=== PATIENT | female | born 1975 | race Caucasian/White ===

== ENCOUNTER 2017-01-29 15:44 | Emergency (ER) | payer OTHER ==
[~2017-01-29] VITALS: Ht 152.4 cm; Wt 67.4 kg
[~2017-01-29 15:44] MED LIST: LISI-461 PO
[2017-01-29 15:48] VITALS: TEMP 36.7; Ht 152.4 cm; Wt 67.4 kg
[2017-01-29] MEDS ORDERED: MoRPHine SULFATE 4 MG/ML 1 ML CARP\\VIAL IV STA (16:01)
[2017-01-29] MEDS ORDERED: SODIUM CHLORIDE 0.9% 1000ML 1,000 ML IV STA (16:01)
[2017-01-29] MEDS ORDERED: ONDANSETRON INJ 2 MG/ML 2 ML VIAL IV STA (16:01)
--- NOTE | 2017-01-29 16:07 | EMERGENCY ROOM VISIT NOTE ---
History Report prepared by Chintan: Yoni Orozco Under the Supervision of: Dr. Christel Cherry M.D. First contact with patient: 15:51 Chief Complaint: ABDOMINAL PAIN Stated Complaint: RIGHT SIDE PAIN History of Present Illness The patient is a 41 year old female who presents to the Emergency Room with complaints of persistent right-sided abdominal pain that started yesterday. She says that she saw her family doctor earlier today, and was told if her pain got any worse to come here for further evaluation. The patient states that she started having loose stools 2 days ago. She adds that she started having episodes of vomiting today. She denies any shortness of breath, urinary symptoms , or hematochezia. The patient notes a history of a partial hysterectomy, but no pertinent chronic medical conditions. Source of History: patient Onset: Yesterday Position: abdomen (right sided) Timing: other (persistent) Associated Symptoms: + vomiting, No SOB, No hematochezia, No urinary symptoms Note: Associated symptoms: Loose stools. Review of Systems See HPI for pertinent positives & negatives. A total of 10 systems reviewed and were otherwise negative. Past Medical & Surgical Medical Problems: (1) HTN (hypertension) Surgical Problems: (1) History of knee surgery (2) History of partial hysterectomy (3) History of tubal ligation No chronic diseases present Family History Cancer Diabetes mellitus Heart disease Hypertension Lung disease Social History Smoking Status: Current Every Day Smoker Alcohol Use: occasionally Marital Status: single Occupation Status: employed Current/Historical Medications Scheduled Acetaminophen (Tylenol), 1,000 MG PO PRN UD Lisinopril (Zestril), 40 MG PO DAILY Trazodone Hcl (Trazodone), 50 MG PO HS Allergies Coded Allergies: Penicillins (Unverified Allergy, Mild, 05/18/09) Physical Exam Vital Signs Date Time Temp Pulse Resp B/P (MAP) Pulse Ox O2 Delivery O2 Flow Rate FiO2 01/29/17 17:57 71 20 144/90 99 Room Air 01/29/17 17:09 75 01/29/17 17:00 71 20 157/95 98 Room Air 01/29/17 15:48 36.7 72 20 147/101 100 Room Air Physical Exam Vital signs reviewed. General: Well-appearing 41 year old female, in no significant distress. HEENT: No scleral icterus, PERRLA, neck supple. Atraumatic. Cardiovascular: Regular rate and rhythm, no extra sounds. Pulmonary: Clear to auscultation bilaterally, normal work of breathing. Abdomen: Tenderness to palpation to right lower quadrant with rebound and guarding. Soft, nondistended, positive bowel sounds. Musculoskeletal: Atraumatic, no peripheral edema. Neurologic: Patient awake alert and oriented x 3 Skin: Warm, dry, no rash Medical Decision & Procedures ER Provider Diagnostic Interpretation: CT results as stated below per my review and radiologist interpretation: CT OF THE ABDOMEN AND PELVIS WITH CONTRAST CLINICAL HISTORY: Right lower quadrant abdominal pain. Evaluate for acute appendicitis. COMPARISON STUDY: Abdominal ultrasound September 13, 2005. TECHNIQUE: Following IV administration of 93 mL of Optiray-320, axial images of the abdomen and pelvis were obtained from the lung bases to the proximal femurs. Images were reviewed in the axial, sagittal, and coronal planes. IV contrast was administered without complication. A dose lowering technique was utilized adhering to the principles of ALARA. CT DOSE: 331.56 mGy.cm FINDINGS: The liver, spleen, adrenal glands, kidneys and pancreas are normal. There is no peripancreatic or pericholecystic infiltration. There is no evidence for a bowel obstruction. The appendix is normal. A 2.7 cm left ovarian lesion measures just above water attenuation. There is trace fluid within the pelvis. The right ovary is not enlarged. There are no suspicious osseous lesions. There is no ascites or lymphadenopathy. IMPRESSION: 1. No acute process within the abdomen or pelvis. Normal appendix. 2. 2.7 cm left ovarian lesion which likely reflects a cyst or dominant follicle. A follow-up pelvic ultrasound in 6 weeks to ensure resolution is recommended. Electronically signed by: Nabor Wallace M.D. 01/29/2017 6:09 PM Dictated Date/Time: 01/29/2017 5:49 PM Laboratory Results 01/29/17 16:35 Red Blood Count 4.01, Mean Corpuscular Volume 96.0, Mean Corpuscular Hemoglobin 33.4, Mean Corpuscular Hemoglobin Concent 34.8, Mean Platelet Volume 9.0, Neutrophils (%) (Auto) 55.1, Lymphocytes (%) (Auto) 32.5, Monocytes (%) (Auto) 10.7, Eosinophils (%) (Auto) 1.5, Basophils (%) (Auto) 0.2, Neutrophils # (Auto ) 3.24, Lymphocytes # (Auto) 1.91, Monocytes # (Auto) 0.63, Eosinophils # (Auto ) 0.09, Basophils # (Auto) 0.01 01/29/17 16:35 Test 01/29/17 16:35 01/29/17 16:50 White Blood Count 5.88 K/uL (4.8-10.8) Red Blood Count 4.01 M/uL (4.2-5.4) Hemoglobin 13.4 g/dL (12.0-16.0) Hematocrit 38.5 % (37-47) Mean Corpuscular Volume 96.0 fL (80-100) Mean Corpuscular Hemoglobin 33.4 pg (25-34) Mean Corpuscular Hemoglobin Concent 34.8 g/dl (32-36) Platelet Count 253 K/uL (130-400) Mean Platelet Volume 9.0 fL (7.4-10.4) Neutrophils (%) (Auto) 55.1 % Lymphocytes (%) (Auto) 32.5 % Monocytes (%) (Auto) 10.7 % Eosinophils (%) (Auto) 1.5 % Basophils (%) (Auto) 0.2 % Neutrophils # (Auto) 3.24 K/uL (1.4-6.5) Lymphocytes # (Auto) 1.91 K/uL (1.2-3.4) Monocytes # (Auto) 0.63 K/uL (0.11-0.59) Eosinophils # (Auto) 0.09 K/uL (0-0.5) Basophils # (Auto) 0.01 K/uL (0-0.2) RDW Standard Deviation 53.2 fL (36.4-46.3) RDW Coefficient of Variation 15.3 % (11.5-14.5) Immature Granulocyte % (Auto) 0.0 % Immature Granulocyte # (Auto) 0.00 K/uL (0.00-0.02) Anion Gap 5.0 mmol/L (3-11) Est Creatinine Clear Calc Drug Dose 99.6 ml/min Estimated GFR () 128.2 Estimated GFR (Non- 110.6 BUN/Creatinine Ratio 8.2 (10-20) Calcium Level 8.4 mg/dl (8.5-10.1) Total Bilirubin 0.2 mg/dl (0.2-1) Direct Bilirubin < 0.1 mg/dl (0-0.2) Aspartate Amino Transf (AST/SGOT) 16 U/L (15-37) Alanine Aminotransferase (ALT/SGPT) 11 U/L (12-78) Alkaline Phosphatase 95 U/L (45-117) Total Protein 6.4 gm/dl (6.4-8.2) Albumin 3.2 gm/dl (3.4-5.0) Lipase 112 U/L (73-393) Urine Color YELLOW Urine Appearance CLEAR (CLEAR) Urine pH 7.5 (4.5-7.5) Urine Specific [place] 1.003 (1.000-1.030) Urine Protein NEG (NEG) Urine Glucose (UA) NEG (NEG) Urine Ketones NEG (NEG) Urine Occult Blood NEG (NEG) Urine Nitrite NEG (NEG) Urine Bilirubin NEG (NEG) Urine Urobilinogen NEG (NEG) Urine Leukocyte Esterase NEG (NEG) Laboratory results per my review. Medications Administered Medications (Trade) Dose Ordered Sig/Jerrica Route Start Time Stop Time Status Last Admin Dose Admin Sodium Chloride 1,000 ml @ 999 mls/hr Q1H1M STAT IV 01/29/17 16:01 01/29/17 17:01 DC 01/29/17 16:30 999 MLS/HR Morphine Sulfate (MoRPHine SULFATE INJ) 4 mg NOW STAT IV 01/29/17 16:01 01/29/17 16:03 DC 01/29/17 16:34 4 MG Ondansetron HCl (Zofran Inj) 4 mg NOW STAT IV 01/29/17 16:01 01/29/17 16:03 DC 01/29/17 16:34 4 MG ED Course 1600: Past medical records reviewed. The patient was evaluated in room B6. A complete history and physical examination was performed. 1601: Ordered Zofran Inj 4 mg IV, Morphine Sulfate Inj 4 mg IV, NSS 1000 ml @ 999 mls/hr IV. 1815: Upon reevaluation, the patient appeared to have improvement of her symptoms. I discussed findings with her. She verbalized agreement of the treatment plan. She was discharged home. Medical Decision Differential diagnosis: Etiologies such as appendicitis, diverticulitis, PUD, biliary pathology, UTI, pancreatitis, obstruction, mesenteric ischemia, aortic pathology, infections, inflammatory bowel disease, renal colic, as well as others were entertained. This patient was evaluated and appeared to be in no significant distress. She is tender to palpation of the right lower quadrant on exam. Laboratory work reveals a normal white blood cell count. CT scan abdomen and pelvis is negative for acute appendicitis. Urinalysis is clear. The patient was informed of the findings. She was advised to use Tylenol or Motrin for her discomfort. She'll follow-up with her physician for reevaluation and return to the ER for worsening of symptoms or any medical concerns. Medication Reconcilliation Current Medication List: was personally reviewed by me Blood Pressure Screening Patient's blood pressure: Elevated blood pressure Blood pressure disposition: Elevated BP felt to be situational Impression Primary Impression: Abdominal pain, RLQ Scribe Attestation The scribe's documentation has been prepared under my direction and personally reviewed by me in its entirety. I confirm that the note above accurately reflects all work, treatment, procedures, and medical decision making performed by me. Departure Information Dispostion Home / Self-Care Referrals Todd Mehta M.D. (PCP) Forms Call Back Authorization, HOME CARE DOCUMENTATION FORM, IMPORTANT VISIT INFORMATION Patient Instructions [facility] Additional Instructions Diagnosis: Right lower quadrant abdominal pain Tylenol 650 mg every 6 hours as needed for pain. Ibuprofen 600 mg every 6 hours as needed for pain with food. Follow-up with your physician this week for reevaluation. Return to the ER for worsening of symptoms or any medical concerns.
[2017-01-29] MEDS ORDERED: OPTIRAY 320 IV PRN (16:15)
[2017-01-29] MEDS ORDERED: TRAZ50TA35 PO (16:27)
[2017-01-29] MEDS ORDERED: LISI40TA PO (16:27)
[2017-01-29] MEDS ORDERED: ACET-1256 PO (16:27)
[2017-01-29 16:52] LABS: BASO % 0.2 %; BASO ABS # 0.01 K/uL (0-0.2); COMPLETE YES; EOS % 1.5 %; HEMATOCRIT 38.5 % (37-47); LYMPH % 32.5 %; LYMPH ABS # 1.91 K/uL (1.2-3.4); MEAN CORPUSCULAR HEMOGLOBIN 33.4 pg (25-34); MEAN CORPUSCULAR HGB CONC 34.8 g/dl (32-36); MONO % 10.7 %; NEUT % 55.1 %; PLATELET COUNT 253 K/uL (130-400); RED BLOOD COUNT 4.01 M/uL (4.2-5.4); WHITE BLOOD COUNT 5.88 K/uL (4.8-10.8)
[2017-01-29 17:13] LABS: ALT/SGPT 11 U/L (12-78); BLOOD UREA NITROGEN 5 mg/dl (7-18); BUN/CREATININE RATIO 8.2 (10-20); CALCIUM 8.4 mg/dl (8.5-10.1); CARBON DIOXIDE 27 mmol/L (21-32); CHLORIDE 101 mmol/L (98-107); CREATININE 0.63 mg/dl (0.60-1.20); GLUCOSE 95 mg/dl (70-99); POTASSIUM 4.2 mmol/L (3.5-5.1); SODIUM 133 mmol/L (136-145)
[2017-01-29 17:16] LABS: ALKALINE PHOSPHATASE 95 U/L (45-117); AST/SGOT 16 U/L (15-37)
[2017-01-29 17:57] VITALS: BP 144/90; PULSE 71; O2SAT 99
--- NOTE | 2017-01-29 18:11 | DIAGNOSTIC IMAGING REPORT ---
CT OF THE ABDOMEN AND PELVIS WITH CONTRAST CLINICAL HISTORY: Right lower quadrant abdominal pain. Evaluate for acute appendicitis. COMPARISON STUDY: Abdominal ultrasound September 13, 2005. TECHNIQUE: Following IV administration of 93 mL of Optiray-320, axial images of the abdomen and pelvis were obtained from the lung bases to the proximal femurs. Images were reviewed in the axial, sagittal, and coronal planes. IV contrast was administered without complication. A dose lowering technique was utilized adhering to the principles of ALARA. CT DOSE: 331.56 mGy.cm FINDINGS: The liver, spleen, adrenal glands, kidneys and pancreas are normal. There is no peripancreatic or pericholecystic infiltration. There is no evidence for a bowel obstruction. The appendix is normal. A 2.7 cm left ovarian lesion measures just above water attenuation. There is trace fluid within the pelvis. The right ovary is not enlarged. There are no suspicious osseous lesions. There is no ascites or lymphadenopathy. IMPRESSION: 1. No acute process within the abdomen or pelvis. Normal appendix. 2. 2.7 cm left ovarian lesion which likely reflects a cyst or dominant follicle. A follow-up pelvic ultrasound in 6 weeks to ensure resolution is recommended. Electronically signed by: Nabor Wallace M.D. 01/29/2017 6:09 PM Dictated Date/Time: 01/29/2017 5:49 PM
[2017-01-29 18:19] LABS: URINE APPEARANCE CLEAR (CLEAR); URINE BILIRUBIN NEG (NEG); URINE COLOR YELLOW; URINE NITRITE NEG (NEG); URINE PH 7.5 (4.5-7.5); URINE SPECIFIC GRAVITY 1.003 (1.000-1.030); UROBILINOGEN NEG (NEG); ZZUR CULT IF INDIC CLEAN CATCH NO
[2017-01-29 18:23] LABS: MANUAL MICROSCOPIC REQUIRED? NO; REVIEW REQ? NO
== END 2017-01-29 18:27 | disposition home or self-care (01) ==
LOC: C.EDB 15:45
DX: R10.31 Right lower quadrant pain (principal); Z90.711 Acquired absence of uterus with remaining cervical stump; I10 Essential (primary) hypertension; Z98.51 Tubal ligation status; Z80.9 Family history of malignant neoplasm, unspecified; Z83.3 Family history of diabetes mellitus; Z82.49 Family history of ischemic heart disease and other diseases of the circulatory system; F17.210 Nicotine dependence, cigarettes, uncomplicated; Z79.899 Other long term (current) drug therapy

== ENCOUNTER 2023-07-07 07:44 | Inpatient (IN) ==
[2023-07-07 08:19] LABS: iSTAT Creatinine 0.7 mg/dl (0.6-1.3); iSTAT Hemoglobin 13.6 g/dl (12.0-16.0); iSTAT Ionized Calcium 1.19 mmol/l (1.12-1.32); iSTAT Potassium 4.4 mmol/L (3.3-5.0)
[2023-07-07] MEDS: OPTIRAY 350 500ml IV ONE (08:21)
[2023-07-07 08:32] LABS: Basophils # (auto) 0.01 K/uL (0.00-0.20); Basophils % (auto) 0.1 %; Hematocrit (blood only) 38.8 % (37.0-47.0); Hemoglobin 13.2 g/dl (12.0-16.0); Immature Granulocytes # (auto) 0.02 K/uL (0.01-0.20); Immature Granulocytes % (auto) 0.3 %; Lymphocytes % (auto) 10.4 %; Mean Corpuscular Hemoglobin 31.1 pg (25.0-34.0); Mean Corpuscular Volume 91.5 fL (80.0-100.0); Mean Platelet Volume 10.5 fL (9.4-12.4); Monocytes # (auto) 0.67 K/uL (0.11-0.59); Monocytes % (auto) 9.9 %; Neutrophils # (auto) 5.34 K/uL (1.40-6.50); Neutrophils % (auto) 79.3 %; Platelet Count 206 K/uL (130-400); RDW Coefficient of Variation 13.5 % (11.5-14.5); RDW Standard Deviation 45.3 fL (36.4-46.3); Red Blood Count 4.24 M/uL (4.20-5.40); White Blood Count 6.74 K/ul (4.8-10.8)
[2023-07-07] MEDS: HYDROmorphone INJ 0.5 MG/0.5 ML SYR IV STA ×2 (08:41→10:35)
--- NOTE | 2023-07-07 08:41 | CT Scan Report ---
CT ANGIOGRAM OF THE CHEST COMBO CLINICAL HISTORY: Atypical chest pain. COMPARISON STUDY: Chest x-ray dated 09/14/2006. TECHNIQUE: Before and following the IV administration of 112 cc of Optiray 350, CT angiogram of the c hest was performed from the thoracic inlet to the upper abdomen utilizing the dissection protocol. Im ages are reviewed in the axial, sagittal, and coronal planes. 3-D MIPS images are created and assesse d. IV contrast was administered without complication. A dose lowering technique was utilized adherin g to the principles of ALARA. CT DOSE: 3335.87 mGy.cm FINDINGS: Thyroid: Imaged portions of the thyroid gland are normal in size and attenuation. Thoracic aorta: No intramural hematoma is seen on the unenhanced series. There is moderate atheroscle rotic calcification of the thoracic aorta, which is normal in caliber and demonstrates standard 3-ves lou arch anatomy. No dissection is seen. The arch vessels are widely patent. Pulmonary vasculature: The pulmonary trunk is normal in caliber. There are no filling defects identif ied in the main, lobar, or segmental pulmonary arteries to indicate pulmonary embolus. Heart: The heart is top normal in size and without pericardial effusion. There is coronary artery ath erosclerosis.. Lungs and pleural spaces: Evaluation of the lung parenchyma is degraded by motion artifact. Intralobu lar septal thickening suggests fluid overload/congestive failure. There are small pleural effusions w ith dependent atelectasis. Patchy groundglass opacities are seen throughout both lungs, greatest in t he right lower lobe. There are calcified granulomas. Secretions are noted in the trachea. Mediastinum: There are mildly enlarged mediastinal lymph nodes. A precarinal node measures 16 mm in s hort axis. A pretracheal node measures 10 mm in short axis. [place]: Mildly enlarged bilateral hilar nodes measure up to 10 mm in short axis. Axillae: There is no axillary lymphadenopathy. Upper abdomen: Partially visualized upper abdominal viscera is within normal limits. Skeletal structures: Degenerative change and hyperkyphosis is noted in the thoracic spine. No lytic o r blastic bony lesions are seen. IMPRESSION: 1. Unremarkable CT angiogram of the thoracic aorta. 2. There is no evidence of pulmonary embolus in the main, lobar, or segmental pulmonary arteries. 3. There is evidence of fluid overload/congestive failure. 4. Small pleural effusions. 5. Scattered bilateral groundglass opacities likely represent pulmonary edema. Correlate clinically f or evidence of a superimposed infectious/inflammatory pneumonitis. A follow-up chest CT scan in 3-4 m onths time is recommended to document complete resolution. 6. Mildly enlarged mediastinal and hilar lymph nodes are nonspecific and can also be reassessed at fo llow-up. 7. Coronary artery atherosclerosis. 8. Additional findings as above. ACT 112: Negative or not required by law. Electronically signed by: Noam Hidalgo M.D. 07/07/2023 8:39 AM
--- NOTE | 2023-07-07 08:48 | CT Scan Report ---
CT angio abd pelvis wo/w con CLINICAL HISTORY: Chest pain. Evaluate for dissection. COMPARISON STUDY: CT of the abdomen and pelvis January 29, 2017. TECHNIQUE: Unenhanced and arterial phase imaging of the abdomen and pelvis was performed. Intravenous injection of 112 cc of Optiray 350 IV was uneventful. Sagittal and coronal reconstructions were view ed as well as maximal intensity projections on an independent 3-D workstation. Automated exposure con trol was utilized for the study. A dose lowering technique was utilized adhering to the principles o f ALARA. FINDINGS: Please note that the chest CT will be reported separately. Small bilateral pleural effusion s, interlobular septal thickening and patchy airspace opacities within the lower lungs are noted. The se findings are better depicted on the chest CT. The caliber of the abdominal aorta is normal. There is mild aortoiliac atherosclerotic plaque. No abdominal aortic dissection. Major branch vessels are p atent. There is no aneurysm within the abdomen or pelvis. No pneumatosis, free air or portal venous g as is present. There is minimal stranding adjacent to the gallbladder. The gallbladder is not distend ed. The findings do not suggest acute cholecystitis. IVC and hepatic veins are distended with reflux of contrast. Spleen, adrenal glands, kidneys and pancreas are unremarkable. There is no evidence for a bowel obstruction. Trace fluid within the pelvis is present. The appendix is normal. There is no ly mphadenopathy. No fluid collections are present. No acute fractures within the visualized skeletal st ructures. IMPRESSION: 1. Normal caliber abdominal aorta. No abdominal aortic dissection. Mild atherosclerotic plaque. Paten t vessels. 2. Trace fluid within the pelvis. 3. No bowel obstruction. No bowel wall thickening. ACT 112: Negative or not required by law. Electronically signed by: Nabor Wallace M.D. 07/07/2023 8:47 AM
[2023-07-07 08:55] LABS: Albumin Globulin Ratio 1.2 (0.9-2); Albumin Level 3.8 gm/dl (3.4-5.0); BUN Creatinine Ratio 21.9 (10-20); Bilirubin,Total 0.4 mg/dl (0.2-1.0); Calcium 9.2 mg/dl (8.6-10.3); Creatinine Clr Calc Pharmacy 74.6 ml/min; Est GFR (African American) 112.1 ml/min; Est GFR (Non-African American) 96.7 ml/min; Globulin 3.3 gm/dl (2.5-4.0); Potassium 4.4 mmol/L (3.5-5.1); Total Protein 7.1 gm/dl (6.0-8.3)
[2023-07-07] MEDS: ASPIRIN 81 MG CHEW PO STA (09:12)
[2023-07-07] MEDS: NITROGLYCERIN SL 0.4 MG/TAB TAB SL STA (09:14)
[2023-07-07] MEDS: FUROSEMIDE 40 MG/4 ML VIAL IV ONE (09:15)
[2023-07-07 09:21] LABS: Troponin I High Sensitivity 2064.2 pg/ml (0-14)
--- NOTE | 2023-07-07 09:28 | Emergency Department Note ---
Impression & Plan NSTEMI (non-ST elevated myocardial infarction), Pleural effusion, CHF (congestive heart failure) ED Provider Note NAME: BANDAR LUNA AGE: 48 SEX: F : 1975 ARRIVES VIA: Walk-In INFORMANT: Patient, ED PROVIDER(S): Bettie Santiago MD CHIEF COMPLAINT: HPI: This is a 48-year-old female presenting for chest pain, shortness of breath. Patient states that around midnight she began having sudden onset of chest pain rating into her back. She notes that it is midsternal. She had some associated nausea without vomiting. This morning she states that she was having difficulty with chest tightness, shortness of breath and could not lay flat. She also notes new diarrhea. She did a concerned about this and came to the ER for this pain, shortness of breath as well as coughing with swallowing of blood this morning. She does note that her father had previous from cardiac disease. ROS: See above HPI for pertinent positives & negatives. A total of 10 systems reviewed and were otherwise negative. PAST MEDICAL HISTORY: See Below PAST SURGICAL HISTORY: See Below FAMILY HISTORY: See Below SOCIAL HISTORY: See Below HOME MEDICATIONS: See Below ALLERGIES: See Below VITALS: See Below PHYSICAL EXAMINATION: General: Moderate distress due to shortness of breath and pain Head: Normocephalic and atraumatic Eyes: Normal inspection, extraocular muscles intact Ear, nose, throat: Normal external exam Neck: Normal range of motion Respiratory: Diffuse wheeze, tachypneic Cardiovascular: Tachycardic regular rate/rhythm, no murmur GI: soft, nontender, Extremities: nontender, moves all extremities Neuro: The patient awake and alert, appropriately conversive, no focal deficits, symmetric faces Skin: Warm, dry, and intact MEDICAL DECISION MAKING: This is a 48-year-old female senting for chest pain shortness of breath. Patient made priority patient by nursing staff due to her current acute distress. Patient noted severe chest/back pain. Concern for dissection versus PE clinically. Patient on current oxygen for shortness of breath concerns however she was 97% on room air. In an effort to expedite care, [id number] BMP was sent showing creatinine that is 0.7. Will send patient for CTA dissection protocol with her chest and abdomen. With patient significant respiratory distress, pain, slight diaphoresis, will rule out dissection/PE. Could also consider ACS, CHF, pericardial effusion. -ECG independently interpreted by me with sinus tachycardia, rate of 109, normal axis, normal NV, normal QRS, normal QTc, no ST segment elevations consistent with STEMI criteria, ST segment depressions noted in inferior and anterior leads -Patient CTA of the chest/abdomen/pelvis did not reveal PE or dissection. Does show cardiomegaly, fluid overload, pleural effusions -Currently patient not have EKG consistent with STEMI. CTs as above. Patient does appear fluid overloaded, consider CHF from ACS/NSTEMI -Patient troponin is elevated over 1999. Will start heparin drip at this time. Will admit for further workup. Will give Lasix for the fluid overload and nitro for this chest pain as well -Lab work otherwise reveals no cytosis or anemia. Low chest with normal limits. -Patient excepted to inpatient service, [facility], under Dr. Arambula Differential diagnosis: See above ER treatment provided: See below Diagnostics interpreted by me: ECG: See above Cardiac Monitoring: An order was placed for continuous cardiac monitoring. The monitor shows a rate of 82 with sinus rhythm. Laboratory studies: As stated above and show below. Imaging studies: See below. Critical Care Note: I have personally spent 40 minutes of critical care time in the direct management of this patient. This includes bedside care, interpretation of diagnostic studies, and testing, discussion with consultants, patient, and family members, and other required patient management activities. This 40 minutes is in excess of all separately billable procedures. Past Med/Surg History Medical History HTN (hypertension) Intra-abdominal bleeding From ruptured ovarian cyst Hx of ovarian cyst Family History Father Heart disease Hypertension Myocardial infarction Brother Heart disease Social History Smoking Status: Current every day smoker Tobacco Type: Cigarettes Cigarettes Per Day: 10; Second Hand Exposure: No; Do You Dip or Chew Tobacco: No; Tobacco Cessation Education Requested by Patient: No Hx Alcohol Use: Yes Alcohol type: beer Hx Substance Use: No Preferred Language: Montserratian Communication Ability: Effective Setter Out Required: No Beliefs That Will Affect Care: None Current Living Situation: Alone Other Information That Helps Us Care for You: No Feels Safe at Home: Yes Safety Concerns: Feels Safe At This Time Assistive Devices: Denture - Upper, Denture - Lower and Glasses Allergies Allergies Allergy/AdvReac Type Severity Reaction Status Date / Time Penicillins Allergy Severe Throat Unverified 07/07/23 10:14 Swelling Home Meds Home Medications Medication Instructions Recorded Confirmed dihydroxyaluminum sodium carb 334 334 mg PO DAILY PRN Acid Reflux 07/07/23 07/07/23 mg chewable tablet lisinopril 40 mg tablet 40 mg PO QAM 07/07/23 07/07/23 Results & Data (ED) Vital Signs Vital Signs - 24 hr 07/07/23 07:45 07/07/23 08:05 07/07/23 08:05 Temperature 36.8 C Temperature Source Temporal Artery Scan Pulse Rate 106 H 114 H Pulse Rate [Apical] 114 H Pulse Rate from SpO2 Sensor Pulse Rhythm [Apical] Pulse Strength [Apical] Respiratory Rate 18 33 H Respiratory Effort / Characteristics Non-Labored Spontaneous Respiratory Depth Normal Respiratory Pattern Blood Pressure 166/110 H Blood Pressure [Right Arm] 156/117 H Blood Pressure Mean 128 Blood Pressure Mean [Right Arm] 130 Blood Pressure Position Sitting Blood Pressure Position [Right Arm] Pulse Oximetry 97 99 Oxygen Delivery Method Room Air Nasal Cannula Oxygen Flow Rate 3 Sepsis Recent Fever Within 48 Hours No Sepsis New/Unexplained Change in Mental Status No Sepsis Action Taken by Nursing No Action Required 07/07/23 08:23 07/07/23 08:23 07/07/23 08:30 Temperature Temperature Source Pulse Rate 106 H 100 H Pulse Rate [Apical] Pulse Rate from SpO2 Sensor 105 H 99 H Pulse Rhythm [Apical] Pulse Strength [Apical] Respiratory Rate 41 H 25 H Respiratory Effort / Characteristics Respiratory Depth Respiratory Pattern Blood Pressure 142/105 H Blood Pressure [Right Arm] Blood Pressure Mean 119 Blood Pressure Mean [Right Arm] Blood Pressure Position Blood Pressure Position [Right Arm] Pulse Oximetry 99 100 Oxygen Delivery Method Nasal Cannula Nasal Cannula Oxygen Flow Rate 3 3 Sepsis Recent Fever Within 48 Hours Sepsis New/Unexplained Change in Mental Status Sepsis Action Taken by Nursing 07/07/23 08:30 07/07/23 08:45 07/07/23 08:45 Temperature Temperature Source Pulse Rate 101 H Pulse Rate [Apical] Pulse Rate from SpO2 Sensor 101 H Pulse Rhythm [Apical] Pulse Strength [Apical] Respiratory Rate 28 H Respiratory Effort / Characteristics Respiratory Depth Respiratory Pattern Blood Pressure 138/98 131/93 Blood Pressure [Right Arm] Blood Pressure Mean 114 108 Blood Pressure Mean [Right Arm] Blood Pressure Position Blood Pressure Position [Right Arm] Pulse Oximetry 100 Oxygen Delivery Method Oxygen Flow Rate Sepsis Recent Fever Within 48 Hours Sepsis New/Unexplained Change in Mental Status Sepsis Action Taken by Nursing 07/07/23 09:00 07/07/23 09:00 07/07/23 09:15 Temperature Temperature Source Pulse Rate 101 H 97 H Pulse Rate [Apical] Pulse Rate from SpO2 Sensor 99 H 96 H Pulse Rhythm [Apical] Pulse Strength [Apical] Respiratory Rate 21 29 H Respiratory Effort / Characteristics Respiratory Depth Respiratory Pattern Blood Pressure 113/86 Blood Pressure [Right Arm] Blood Pressure Mean 95 Blood Pressure Mean [Right Arm] Blood Pressure Position Blood Pressure Position [Right Arm] Pulse Oximetry 99 99 Oxygen Delivery Method Oxygen Flow Rate Sepsis Recent Fever Within 48 Hours Sepsis New/Unexplained Change in Mental Status Sepsis Action Taken by Nursing 07/07/23 09:15 07/07/23 09:30 07/07/23 09:30 Temperature Temperature Source Pulse Rate 104 H Pulse Rate [Apical] Pulse Rate from SpO2 Sensor 103 H Pulse Rhythm [Apical] Pulse Strength [Apical] Respiratory Rate 21 Respiratory Effort / Characteristics Respiratory Depth Respiratory Pattern Blood Pressure 122/92 126/96 Blood Pressure [Right Arm] Blood Pressure Mean 102 103 Blood Pressure Mean [Right Arm] Blood Pressure Position Blood Pressure Position [Right Arm] Pulse Oximetry 99 Oxygen Delivery Method Nasal Cannula Oxygen Flow Rate 3 Sepsis Recent Fever Within 48 Hours Sepsis New/Unexplained Change in Mental Status Sepsis Action Taken by Nursing 07/07/23 09:45 07/07/23 09:45 07/07/23 10:00 Temperature Temperature Source Pulse Rate 89 98 H Pulse Rate [Apical] Pulse Rate from SpO2 Sensor 88 98 H Pulse Rhythm [Apical] Pulse Strength [Apical] Respiratory Rate 20 24 Respiratory Effort / Characteristics Respiratory Depth Respiratory Pattern Blood Pressure 113/88 Blood Pressure [Right Arm] Blood Pressure Mean 101 Blood Pressure Mean [Right Arm] Blood Pressure Position Blood Pressure Position [Right Arm] Pulse Oximetry 100 99 Oxygen Delivery Method Nasal Cannula Oxygen Flow Rate 3 Sepsis Recent Fever Within 48 Hours Sepsis New/Unexplained Change in Mental Status Sepsis Action Taken by Nursing 07/07/23 10:00 07/07/23 10:30 07/07/23 10:38 Temperature Temperature Source Pulse Rate 102 H Pulse Rate [Apical] 74 Pulse Rate from SpO2 Sensor 102 H Pulse Rhythm [Apical] Regular Pulse Strength [Apical] Normal Respiratory Rate 22 18 Respiratory Effort / Characteristics Non-Labored Respiratory Depth Normal Respiratory Pattern Regular Blood Pressure 111/89 Blood Pressure [Right Arm] 88/65 L Blood Pressure Mean 100 Blood Pressure Mean [Right Arm] 72 Blood Pressure Position Blood Pressure Position [Right Arm] Sitting Pulse Oximetry 99 97 Oxygen Delivery Method Room Air Oxygen Flow Rate Sepsis Recent Fever Within 48 Hours Sepsis New/Unexplained Change in Mental Status Sepsis Action Taken by Nursing Laboratory Data 07/07/23 08:03 07/07/23 08:03 Lab Results 07/07/23 07/07/23 07/07/23 Range/Units 08:03 08:08 08:52 WBC 6.74 (4.8-10.8) K/ul RBC 4.24 (4.20-5.40) M/uL Hgb 13.2 (12.0-16.0) g/dl POC Hgb 13.6 (12.0-16.0) g/dl Hct 38.8 (37.0-47.0) % POC Hct 40 (37-47) % MCV 91.5 (80.0-100.0) fL MCH 31.1 (25.0-34.0) pg MCHC 34.0 (32.0-36.0) g/dL RDW Std Deviation 45.3 (36.4-46.3) fL RDW Coeff of Anju 13.5 (11.5-14.5) % Plt Count 206 (130-400) K/uL MPV 10.5 (9.4-12.4) fL Immature Gran % (Auto) 0.3 % Neut % (Auto) 79.3 % Lymph % (Auto) 10.4 % [place] % (Auto) 9.9 % Eos % (Auto) 0.0 % Baso % (Auto) 0.1 % Neut # (Auto) 5.34 (1.40-6.50) K/uL Lymph # (Auto) 0.70 L (1.20-3.40) K/uL [place] # (Auto) 0.67 H (0.11-0.59) K/uL Eos # (Auto) 0.00 (0.00-0.50) K/uL Baso # (Auto) 0.01 (0.00-0.20) K/uL Immature Gran # (Auto) 0.02 (0.01-0.20) K/uL POC Sodium 137 (135-144) mmol/L Sodium 136 (136-145) mmol/L POC Potassium 4.4 (3.3-5.0) mmol/L Potassium 4.4 (3.5-5.1) mmol/L POC Chloride 101 (101-112) mmol/L Chloride 104 (98-107) mmol/L Carbon Dioxide 23 (21-32) mmol/L POC Total CO2 22 L (24-31) mmol/L Anion Gap 9 (3-11) POC Anion Gap 20.0 (16-25) mmol/L POC BUN 15 (7-18) mg/dl BUN 16 (6-23) mg/dl Creatinine 0.73 (0.6-1.2) mg/dl POC Creatinine 0.7 (0.6-1.3) mg/dl Est Cr Clr Drug Dosing 74.6 ml/min Est GFR ( Amer) 112.1 ml/min Est GFR (Non-Af Amer) 96.7 ml/min BUN/Creatinine Ratio 21.9 H (10-20) Glucose 125 H (70-99(Fasting)) mg/dl POC Glucose (other) 128 H (70-99) mg/dl Calcium 9.2 (8.6-10.3) mg/dl POC Ioniz Calcium Kamla 1.19 (1.12-1.32) mmol/l Total Bilirubin 0.4 (0.2-1.0) mg/dl AST 16 (13-39) U/L ALT 7 (7-52) U/L Alkaline Phosphatase 166 H (34-104) U/L Troponin I High Sens 2064.2 H* (0-14) pg/ml B-Natriuretic Peptide 2074 H (0-100) pg/ml Total Protein 7.1 (6.0-8.3) gm/dl Albumin 3.8 (3.4-5.0) gm/dl Globulin 3.3 (2.5-4.0) gm/dl Albumin/Globulin Ratio 1.2 (0.9-2) Adenovirus (PCR) Not Detected (NotDetected) B. pertussis DNA (PCR) Not Detected (NotDetected) B.parapertussis DNA PCR Not Detected (NotDetected) C. pneumoniae DNA (PCR) Not Detected (NotDetected) Coronavirus OC43 (PCR) Not Detected (NotDetected) Coronavirus HKU1 (PCR) Not Detected (NotDetected) Coronavirus 229E (PCR) Not Detected (NotDetected) SARS-CoV-2 (PCR) Not Detected (NotDetected) Coronavirus NL63 (PCR) Not Detected (NotDetected) Human Metapneumovir PCR Not Detected (NotDetected) Influenza Type A (PCR) Not Detected (NotDetected) Influenza Type B (PCR) Not Detected (NotDetected) M. pneumoniae (PCR) Not Detected (NotDetected) Parainfluenza 1 (PCR) Not Detected (NotDetected) Parainfluenza 2 (PCR) Not Detected (NotDetected) Parainfluenza 3 (PCR) Not Detected (NotDetected) Parainfluenza 4 (PCR) Not Detected (NotDetected) RSV (PCR) Not Detected (NotDetected) Entero/Rhino (PCR) Not Detected (NotDetected) 07/07/23 Range/Units 10:31 WBC (4.8-10.8) K/ul RBC (4.20-5.40) M/uL Hgb (12.0-16.0) g/dl POC Hgb (12.0-16.0) g/dl Hct (37.0-47.0) % POC Hct (37-47) % MCV (80.0-100.0) fL MCH (25.0-34.0) pg MCHC (32.0-36.0) g/dL RDW Std Deviation (36.4-46.3) fL RDW Coeff of Anju (11.5-14.5) % Plt Count (130-400) K/uL MPV (9.4-12.4) fL Immature Gran % (Auto) % Neut % (Auto) % Lymph % (Auto) % [place] % (Auto) % Eos % (Auto) % Baso % (Auto) % Neut # (Auto) (1.40-6.50) K/uL Lymph # (Auto) (1.20-3.40) K/uL [place] # (Auto) (0.11-0.59) K/uL Eos # (Auto) (0.00-0.50) K/uL Baso # (Auto) (0.00-0.20) K/uL Immature Gran # (Auto) (0.01-0.20) K/uL POC Sodium (135-144) mmol/L Sodium (136-145) mmol/L POC Potassium (3.3-5.0) mmol/L Potassium (3.5-5.1) mmol/L POC Chloride (101-112) mmol/L Chloride (98-107) mmol/L Carbon Dioxide (21-32) mmol/L POC Total CO2 (24-31) mmol/L Anion Gap (3-11) POC Anion Gap (16-25) mmol/L POC BUN (7-18) mg/dl BUN (6-23) mg/dl Creatinine (0.6-1.2) mg/dl POC Creatinine (0.6-1.3) mg/dl Est Cr Clr Drug Dosing ml/min Est GFR ( Amer) ml/min Est GFR (Non-Af Amer) ml/min BUN/Creatinine Ratio (10-20) Glucose (70-99(Fasting)) mg/dl POC Glucose (other) (70-99) mg/dl Calcium (8.6-10.3) mg/dl POC Ioniz Calcium Kamla (1.12-1.32) mmol/l Total Bilirubin (0.2-1.0) mg/dl AST (13-39) U/L ALT (7-52) U/L Alkaline Phosphatase (34-104) U/L Troponin I High Sens 2581.0 H* D (0-14) pg/ml B-Natriuretic Peptide (0-100) pg/ml Total Protein (6.0-8.3) gm/dl Albumin (3.4-5.0) gm/dl Globulin (2.5-4.0) gm/dl Albumin/Globulin Ratio (0.9-2) Adenovirus (PCR) (NotDetected) B. pertussis DNA (PCR) (NotDetected) B.parapertussis DNA PCR (NotDetected) C. pneumoniae DNA (PCR) (NotDetected) Coronavirus OC43 (PCR) (NotDetected) Coronavirus HKU1 (PCR) (NotDetected) Coronavirus 229E (PCR) (NotDetected) SARS-CoV-2 (PCR) (NotDetected) Coronavirus NL63 (PCR) (NotDetected) Human Metapneumovir PCR (NotDetected) Influenza Type A (PCR) (NotDetected) Influenza Type B (PCR) (NotDetected) M. pneumoniae (PCR) (NotDetected) Parainfluenza 1 (PCR) (NotDetected) Parainfluenza 2 (PCR) (NotDetected) Parainfluenza 3 (PCR) (NotDetected) Parainfluenza 4 (PCR) (NotDetected) RSV (PCR) (NotDetected) Entero/Rhino (PCR) (NotDetected) Administered Medications Atorvastatin Calcium (Atorvastatin 40 Mg Tab) 80 mg PO QAM [facility] Stop: 08/06/23 13:43 Last Admin: 07/07/23 14:35 Dose: 80 mg Documented By: SAMPSON Discontinued Medications Aspirin (Aspirin 81 Mg Chew) 324 mg PO NOW STA Stop: 07/07/23 08:53 Last Admin: 07/07/23 09:12 Dose: 324 mg Documented By: TAMIKA Clopidogrel Bisulfate (Clopidogrel Bisulfate 300 Mg Tab) Confirm Administered Dose 300 mg .ROUTE .STK-MED ONE Stop: 07/07/23 12:33 Last Admin: 07/07/23 12:36 Dose: 600 mg Documented By: RHONDA Fentanyl Citrate (Fentanyl Citrate Pf 100 Mcg/2 Ml Vial) Confirm Administered Dose 100 mcg .ROUTE .STK-MED ONE Stop: 07/07/23 10:46 Last Increment: 07/07/23 12:05 Dose: 75 mcg Documented By: PREM Furosemide (Furosemide 40 Mg/4 Ml Vial) 40 mg IV ONE ONE Stop: 07/07/23 08:53 Last Admin: 07/07/23 09:15 Dose: 40 mg Documented By: TAMIKA Heparin Sodium (Porcine) (Heparin Sod (Porcine) 1000 Unit/Ml) 4,000 units IV NOW ONE Stop: 07/07/23 09:46 Last Admin: 07/07/23 09:47 Dose: 4,000 units Documented By: TAMIKA Co-signed By: JUSTIN Heparin Sodium (Porcine) (Heparin (Porcine) 1000 Unit/Ml 10 Ml (Food Adviser Use Only)) Confirm Administered Dose 10,000 units .ROUTE .STK-MED ONE Stop: 07/07/23 10:46 Last Admin: 07/07/23 12:05 Dose: 8,000 units Documented By: PREM Heparin Sodium/Dextrose (Heparin Iv Adult Wt-Based Standard W/ Initial Bolus Protocol) 1 each IV NOW STA; Protocol Stop: 07/07/23 09:24 Last Admin: 07/07/23 09:53 Dose: 1 each Documented By: TAMIKA Heparin Sodium/Sodium Chloride (Heparin In Nss Infusion 1000 Unit/500 Ml (2 U/Ml) Bag) Confirm Administered Dose 3,000 units IV .STK-MED ONE Stop: 07/07/23 10:46 Last Admin: 07/07/23 11:50 Dose: 3,000 units Documented By: AZUCENA Hydromorphone HCl (Hydromorphone Inj 0.5 Mg/0.5 Ml Syr) 0.5 mg IV NOW STA Stop: 07/07/23 08:38 Last Admin: 07/07/23 08:41 Dose: 0.5 mg Documented By: TAMIKA Hydromorphone HCl (Hydromorphone Inj 0.5 Mg/0.5 Ml Syr) 0.5 mg IV NOW STA Stop: 07/07/23 10:05 Last Admin: 07/07/23 10:35 Dose: Not Given Documented By: TAMIKA Heparin Sodium/Dextrose (Heparin Sodium/Dextrose) 25,000 units in 500 mls @ 18 mls/hr IV .Q24H BENJAMIN; Protocol Stop: 08/06/23 09:44 Last Titration: 07/07/23 13:24 Dose: Infused Documented By: SAMPSON Co-signed By: JESSY Admin: 07/07/23 09:47 Dose: 900 units/hr, 18 mls/hr Documented By: TAMIKA Co-signed By: JUSTIN Ioversol (Optiray 350 500ml) 112 ml IV ONCE ONE Stop: 07/07/23 08:21 Last Admin: 07/07/23 08:21 Dose: 112 ml Documented By: KAILASH Ioversol (Optiray 350) Confirm Administered Dose 1 ml .ROUTE .STK-MED ONE Stop: 07/07/23 10:47 Last Admin: 07/07/23 12:09 Dose: 220 ml Documented By: AZUCENA Metoprolol Tartrate (Metoprolol Tartrate 1 Mg/Ml Vial) Confirm Administered Dose 5 mg IV .STK-MED ONE Stop: 07/07/23 10:31 Last Admin: 07/07/23 10:35 Dose: 2.5 mg Documented By: TAMIKA Midazolam HCl (Midazolam Hcl 1 Mg/Ml 2ml Vial) Confirm Administered Dose 2 mg .ROUTE .STK-MED ONE Stop: 07/07/23 10:46 Last Admin: 07/07/23 12:04 Dose: 2 mg Documented By: PREM Nicardipine HCl (Nicardipine Hcl Inj 2.5 Mg/Ml 10 Ml Amp) Confirm Administered Dose 25 mg .ROUTE .STK-MED ONE Stop: 07/07/23 10:46 Last Admin: 07/07/23 11:49 Dose: 25 mg Documented By: AZUCENA Nitroglycerin (Nitroglycerin Sl 0.4 Mg/Tab Tab) 0.4 mg SL NOW STA Stop: 07/07/23 08:54 Last Admin: 07/07/23 09:14 Dose: 0.4 mg Documented By: TAMIKA Nitroglycerin/Dextrose (Nitroglycerin/D5w 100mcg/Ml 20ml Syr) Confirm Administered Dose 2,000 mcg .ROUTE .STK-MED ONE Stop: 07/07/23 10:47 Last Admin: 07/07/23 12:03 Dose: 2,000 mcg Documented By: AZUCENA Norepinephrine Bitartrate (Norepinephrine/D5w 4 Mg/250 Ml) Confirm Administered Dose 4 mg IV .STK-MED ONE Stop: 07/07/23 11:18 Last Admin: 07/07/23 12:03 Dose: 4 mg Documented By: PREM Ondansetron HCl (Ondansetron Inj 2 Mg/Ml 2 Ml Vial) Confirm Administered Dose 4 mg .ROUTE .STK-MED ONE Stop: 07/07/23 10:50 Last Admin: 07/07/23 11:00 Dose: 4 mg Documented By: TETE Phenylephrine HCl (Phenylephrine 100mcg/Ml 5ml Syr) Confirm Administered Dose 100 mcg .ROUTE .STK-MED ONE Stop: 07/07/23 11:29 Last Admin: 07/07/23 12:04 Dose: 100 mcg Documented By: PREM Co-signed By: TETE Imaging Data Radiologist's Impression: Abdomen/Pelvis CTA 07/07/23 08:11 CT angio abd pelvis wo/w con CLINICAL HISTORY: Chest pain. Evaluate for dissection. COMPARISON STUDY: CT of the abdomen and pelvis January 29, 2017. TECHNIQUE: Unenhanced and arterial phase imaging of the abdomen and pelvis was performed. Intravenous injection of 112 cc of Optiray 350 IV was uneventful. Sagittal and coronal reconstructions were viewed as well as maximal intensity projections on an independent 3-D workstation. Automated exposure control was utilized for the study. A dose lowering technique was utilized adhering to the principles of ALARA. FINDINGS: Please note that the chest CT will be reported separately. Small bilateral pleural effusions, interlobular septal thickening and patchy airspace opacities within the lower lungs are noted. These findings are better depicted on the chest CT. The caliber of the abdominal aorta is normal. There is mild aortoiliac atherosclerotic plaque. No abdominal aortic dissection. Major branch vessels are patent. There is no aneurysm within the abdomen or pelvis. No pneumatosis, free air or portal venous gas is present. There is minimal stranding adjacent to the gallbladder. The gallbladder is not distended. The findings do not suggest acute cholecystitis. IVC and hepatic veins are distended with reflux of contrast. Spleen, adrenal glands, kidneys and pancreas are unremarkable. There is no evidence for a bowel obstruction. Trace fluid within the pelvis is present. The appendix is normal. There is no lymphadenopathy. No fluid collections are present. No acute fractures within the visualized skeletal structures. IMPRESSION: 1. Normal caliber abdominal aorta. No abdominal aortic dissection. Mild atherosclerotic plaque. Patent vessels. 2. Trace fluid within the pelvis. 3. No bowel obstruction. No bowel wall thickening. ACT 112: Negative or not required by law. Electronically signed by: Nabor Wallace M.D. 07/07/2023 8:47 AM Chest CTA 07/07/23 08:11 CT ANGIOGRAM OF THE CHEST COMBO CLINICAL HISTORY: Atypical chest pain. COMPARISON STUDY: Chest x-ray dated 09/14/2006. TECHNIQUE: Before and following the IV administration of 112 cc of Optiray 350, CT angiogram of the chest was performed from the thoracic inlet to the upper abdomen utilizing the dissection protocol. Images are reviewed in the axial, sagittal, and coronal planes. 3-D MIPS images are created and assessed. IV contrast was administered without complication. A dose lowering technique was utilized adhering to the principles of ALARA. CT DOSE: 3335.87 mGy.cm FINDINGS: Thyroid: Imaged portions of the thyroid gland are normal in size and attenuation. Thoracic aorta: No intramural hematoma is seen on the unenhanced series. There is moderate atherosclerotic calcification of the thoracic aorta, which is normal in caliber and demonstrates standard 3-vessel arch anatomy. No dissection is seen. The arch vessels are widely patent. Pulmonary vasculature: The pulmonary trunk is normal in caliber. There are no filling defects identified in the main, lobar, or segmental pulmonary arteries to indicate pulmonary embolus. Heart: The heart is top normal in size and without pericardial effusion. There is coronary artery atherosclerosis.. Lungs and pleural spaces: Evaluation of the lung parenchyma is degraded by motion artifact. Intralobular septal thickening suggests fluid overload/congestive failure. There are small pleural effusions with dependent atelectasis. Patchy groundglass opacities are seen throughout both lungs, greatest in the right lower lobe. There are calcified granulomas. Secretions are noted in the trachea. Mediastinum: There are mildly enlarged mediastinal lymph nodes. A precarinal node measures 16 mm in short axis. A pretracheal node measures 10 mm in short axis. [place]: Mildly enlarged bilateral hilar nodes measure up to 10 mm in short axis. Axillae: There is no axillary lymphadenopathy. Upper abdomen: Partially visualized upper abdominal viscera is within normal limits. Skeletal structures: Degenerative change and hyperkyphosis is noted in the thoracic spine. No lytic or blastic bony lesions are seen. IMPRESSION: 1. Unremarkable CT angiogram of the thoracic aorta. 2. There is no evidence of pulmonary embolus in the main, lobar, or segmental pulmonary arteries. 3. There is evidence of fluid overload/congestive failure. 4. Small pleural effusions. 5. Scattered bilateral groundglass opacities likely represent pulmonary edema. Correlate clinically for evidence of a superimposed infectious/inflammatory pneumonitis. A follow-up chest CT scan in 3-4 months time is recommended to document complete resolution. 6. Mildly enlarged mediastinal and hilar lymph nodes are nonspecific and can also be reassessed at follow-up. 7. Coronary artery atherosclerosis. 8. Additional findings as above. ACT 112: Negative or not required by law. Electronically signed by: Noam Hidalgo M.D. 07/07/2023 8:39 AM Discharge Plan Visit Data Chief Complaint: Illness Stated Complaint: SOB, VOMITNG, DIARRHEA, COUGHING UP BLOOD ED Provider: Bettie Santiago Discharge Problem: NSTEMI (non-ST elevated myocardial infarction), Pleural effusion, CHF (congestive heart failure) Discharge Instructions Interventions: ED Discharge Assessment Last Done: 07/07/23 10:36
[2023-07-07] MEDS ORDERED: HEPARIN SOD (PORCINE) 1000 UNIT/ML IV ONE (09:38)
--- NOTE | 2023-07-07 09:42 | History & Physical Report ---
Date of Service July 07, 2023 Assessment & Plan (1) NSTEMI (non-ST elevated myocardial infarction): (2) Tobacco use: (3) Pleural effusion: (4) HTN (hypertension): Plan: NSTEMI HTN Tobacco Use Pleural Effusion - Admit to PCU - Trend cardiac biomarkers, initial set was 2063, trend until peaks and then one more, Q6H - EKG reviewed as above showing ST wave depressions in lateral and inferior leads. - Check 2 D echo stat - Cardiology consulted - discussed with Dr. Waite who is taking pt to botany laboratory assistant this morning, pt has not eaten anything today. - Pt w/ nausea and vomiting, will provide antiemetic - BNP 2073m s/p lasix IV, insert perera cath for strict I/Os, large pleural effusions seen on imaging likely a result of the above. - Pain control with dilaudid Iv prn as this helped her - Given full dose asa and started on heparin gtt, continue - PT/OT consulted - Cessation of tobacco encouraged at bedside, no nicotine patch at this time. DVT ppx: teds, scds Lines: 2 PIV FEN/GI: N.p.o. CODE: DNR/DNI Dispo: From home, likely to remain in the hospital x 1-2 days A total of 75 minutes were spent with greater than 50% of that time face to face with the patient, personally reviewing all current laboratories, imaging stud ies, past medication reconciliation, outpatient chart review, and discussion with specialists to collaborate care for the patient with attending. Please see attending documentation for corrections and/or additions. (5) Acute systolic heart failure: History of Present Illness Chief Complaint: Chest pain Primary Care Provider: Lilly Santiago MD This is a 48 yo F with PMHx of HTN and chronic tobacco use since age 14 ( 0.5 ppd) who presents to the hospital with complaints of chest pain which started last night around midnight. Pt reports having substernal chest pain and pressure which radiated to her back, associated shortness of breath, as well as nausea and vomiting. Patient reports she was lying down to sleep whenever this occurred, but pain persisted on and off throughout the night. She currently rates this pain a 3/10 and states that the pain medicine the ER gave helped her about an hour ago. She has also received 1 full dose aspirin and heparin gtt. Patient states that she did notice feeling worn out throughout the day yesterday, and took a nap yesterday afternoon until 6 PM. She was with her mother assisting her, but did not notice any chest pain or issues with shortness of breath earlier in the day. Her son and [id number] are present at bedside and supports the history. They brought her to the ER this morning around 7 AM as her symptoms persisted and she called them to come get her. 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 Patient states that she does drink alcohol, twisted tea maybe 2-3 times per week. Denies any illicit drug use, marijuana use or withdrawal from any substances. Family Hx: Father hx of MT at early age, multiple cardiac stents, pacemaker and defibrillator, and is at age 76. Brother has issues with heart as well. Surgical Hx: Pt with hx of ovarian cyst rupture and internal hemorrhage requiring surgical intervention in 2012. Allergies Allergy/AdvReac Type Severity Reaction Status Date / Time Penicillins Allergy Severe Throat Unverified 07/07/23 10:14 Swelling Home Medications Medication Instructions Recorded Confirmed Type dihydroxyaluminum sodium carb 334 334 mg PO DAILY PRN Acid Reflux 07/07/23 07/07/23 History mg chewable tablet lisinopril 40 mg tablet 40 mg PO QAM 07/07/23 07/07/23 History Past Med/Surg History Medical History HTN (hypertension) Intra-abdominal bleeding From ruptured ovarian cyst Hx of ovarian cyst Family History Father Heart disease Hypertension Myocardial infarction Brother Heart disease Social History Smoking Status: Current every day smoker Tobacco Type: Cigarettes Cigarettes Per Day: 10; Second Hand Exposure: No; Do You Dip or Chew Tobacco: No; Tobacco Cessation Education Requested by Patient: No Hx Alcohol Use: Yes Alcohol type: beer Hx Substance Use: No Preferred Language: Indonesian Communication Ability: Effective International Account Representative Required: No Beliefs That Will Affect Care: None Current Living Situation: Alone Other Information That Helps Us Care for You: No Feels Safe at Home: Yes Safety Concerns: Feels Safe At This Time Assistive Devices: Denture - Upper, Denture - Lower and Glasses Review of Systems Review of Systems: Constitutional: No fever, sweats or chills Eyes: No diplopia, no worsening or blurred vision ENT: normal hearing, no trouble swallowing Respiratory: No cough, sputum, + dyspnea at rest and on exertion, + wheeze Cardiovascular: As per HPI, + chest pain and heaviness Abdomen: No pain, + nausea, +vomiting, +diarrhea x 5 episodes, no constipation Musculoskeletal: No joint pain, calf pain, swelling Neurologic: No weakness, numbness/tingling, or balance problems Psychiatric: No anxiety or depression Skin: No rash or itch Physical Exam Physical Exam: General: awake, alert, no apparent distress, thin white female Head: Normocephalic, atraumatic ENT: PERRL, EOMI, no pharyngeal exudate, mucous membranes moist Chest: + Barrel chested, diminished breath sounds at bases, on 3 LPM NC with O2 sats at 100%, no wheeze or rales Cardiac: Chest pain is not reproducible with palpation, tachycardia, no murmur, no JVD, normal peripheral pulses, good capillary refill Abdominal: NABS x 4 quadrants, soft, nondistended, nontender to palpation, no rebound or guarding Extremities: Normal inspection, no peripheral edema or erythema, calfs nontender to palpation Psych: Normal mood and affect Neuro: AAO x 3, strength intact bilaterally and rated 5/5, no motor deficits, speech is clear, no peripheral sensory deficits Results & Data Results & Data Vital Signs (Past 12 Hours) Vital Signs Temp Pulse Pulse Resp BP BP Pulse Ox 07/07/23 09:00 113/86 07/07/23 09:00 101 H 21 99 07/07/23 08:45 101 H 28 H 100 07/07/23 08:45 131/93 07/07/23 08:30 138/98 07/07/23 08:30 100 H 25 H 100 07/07/23 08:23 142/105 H 07/07/23 08:23 106 H 41 H 99 07/07/23 08:05 114 H 07/07/23 08:05 114 H 33 H 156/117 H 99 07/07/23 07:45 36.8 C 106 H 18 166/110 H 97 O2 Del Method O2 Flow Rate 07/07/23 09:00 07/07/23 09:00 07/07/23 08:45 07/07/23 08:45 07/07/23 08:30 07/07/23 08:30 Nasal Cannula 3 07/07/23 08:23 07/07/23 08:23 Nasal Cannula 3 07/07/23 08:05 07/07/23 08:05 Nasal Cannula 3 07/07/23 07:45 Room Air Laboratory Results 07/07/23 07/07/23 07/07/23 08:52 08:08 08:03 WBC 6.74 RBC 4.24 Hgb 13.2 POC Hgb 13.6 Hct 38.8 POC Hct 40 MCV 91.5 MCH 31.1 MCHC 34.0 RDW Std Deviation 45.3 RDW Coeff of Anju 13.5 Plt Count 206 MPV 10.5 Immature Gran % (Auto) 0.3 Neut % (Auto) 79.3 Lymph % (Auto) 10.4 [place] % (Auto) 9.9 Eos % (Auto) 0.0 Baso % (Auto) 0.1 Neut # (Auto) 5.34 Lymph # (Auto) 0.70 L [place] # (Auto) 0.67 H Eos # (Auto) 0.00 Baso # (Auto) 0.01 Immature Gran # (Auto) 0.02 POC Sodium 137 Sodium 136 POC Potassium 4.4 Potassium 4.4 POC Chloride 101 Chloride 104 Carbon Dioxide 23 POC Total CO2 22 L Anion Gap 9 POC Anion Gap 20.0 POC BUN 15 BUN 16 Creatinine 0.73 POC Creatinine 0.7 Est Cr Clr Drug Dosing 74.6 Est GFR ( Amer) 112.1 Est GFR (Non-Af Amer) 96.7 BUN/Creatinine Ratio 21.9 H Glucose 125 H POC Glucose (other) 128 H Calcium 9.2 POC Ioniz Calcium Kamla 1.19 Total Bilirubin 0.4 AST 16 ALT 7 Alkaline Phosphatase 166 H Troponin I High Sens 2064.2 H* B-Natriuretic Peptide 2074 H Total Protein 7.1 Albumin 3.8 Globulin 3.3 Albumin/Globulin Ratio 1.2 Adenovirus (PCR) Not Detected B. pertussis DNA (PCR) Not Detected B.parapertussis DNA PCR Not Detected C. pneumoniae DNA (PCR) Not Detected Coronavirus OC43 (PCR) Not Detected Coronavirus HKU1 (PCR) Not Detected Coronavirus 229E (PCR) Not Detected SARS-CoV-2 (PCR) Not Detected Coronavirus NL63 (PCR) Not Detected Human Metapneumovir PCR Not Detected Influenza Type A (PCR) Not Detected Influenza Type B (PCR) Not Detected M. pneumoniae (PCR) Not Detected Parainfluenza 1 (PCR) Not Detected Parainfluenza 2 (PCR) Not Detected Parainfluenza 3 (PCR) Not Detected Parainfluenza 4 (PCR) Not Detected RSV (PCR) Not Detected Entero/Rhino (PCR) Not Detected Diagnostic Findings Abdomen/Pelvis CTA 07/07/23 08:11 CT angio abd pelvis wo/w con CLINICAL HISTORY: Chest pain. Evaluate for dissection. COMPARISON STUDY: CT of the abdomen and pelvis January 29, 2017. TECHNIQUE: Unenhanced and arterial phase imaging of the abdomen and pelvis was performed. Intravenous injection of 112 cc of Optiray 350 IV was uneventful. Sagittal and coronal reconstructions were viewed as well as maximal intensity projections on an independent 3-D workstation. Automated exposure control was utilized for the study. A dose lowering technique was utilized adhering to the principles of ALARA. FINDINGS: Please note that the chest CT will be reported separately. Small bilateral pleural effusions, interlobular septal thickening and patchy airspace opacities within the lower lungs are noted. These findings are better depicted on the chest CT. The caliber of the abdominal aorta is normal. There is mild aortoiliac atherosclerotic plaque. No abdominal aortic dissection. Major branch vessels are patent. There is no aneurysm within the abdomen or pelvis. No pneumatosis, free air or portal venous gas is present. There is minimal stranding adjacent to the gallbladder. The gallbladder is not distended. The findings do not suggest acute cholecystitis. IVC and hepatic veins are distended with reflux of contrast. Spleen, adrenal glands, kidneys and pancreas are unremarkable. There is no evidence for a bowel obstruction. Trace fluid within the pelvis is present. The appendix is normal. There is no lymphadenopathy. No fluid collections are present. No acute fractures within the visualized skeletal structures. IMPRESSION: 1. Normal caliber abdominal aorta. No abdominal aortic dissection. Mild atherosclerotic plaque. Patent vessels. 2. Trace fluid within the pelvis. 3. No bowel obstruction. No bowel wall thickening. ACT 112: Negative or not required by law. Electronically signed by: Nabor Wallace M.D. 07/07/2023 8:47 AM Chest CTA 07/07/23 08:11 CT ANGIOGRAM OF THE CHEST COMBO CLINICAL HISTORY: Atypical chest pain. COMPARISON STUDY: Chest x-ray dated 09/14/2006. TECHNIQUE: Before and following the IV administration of 112 cc of Optiray 350, CT angiogram of the chest was performed from the thoracic inlet to the upper abdomen utilizing the dissection protocol. Images are reviewed in the axial, sagittal, and coronal planes. 3-D MIPS images are created and assessed. IV co ntrast was administered without complication. A dose lowering technique was utilized adhering to the principles of ALARA. CT DOSE: 3335.87 mGy.cm FINDINGS: Thyroid: Imaged portions of the thyroid gland are normal in size and attenuation. Thoracic aorta: No intramural hematoma is seen on the unenhanced series. There is moderate atherosclerotic calcification of the thoracic aorta, which is normal in caliber and demonstrates standard 3-vessel arch anatomy. No dissection is seen. The arch vessels are widely patent. Pulmonary vasculature: The pulmonary trunk is normal in caliber. There are no filling defects identified in the main, lobar, or segmental pulmonary arteries to indicate pulmonary embolus. Heart: The heart is top normal in size and without pericardial effusion. There is coronary artery atherosclerosis.. Lungs and pleural spaces: Evaluation of the lung parenchyma is degraded by motion artifact. Intralobular septal thickening suggests fluid overload/congestive failure. There are small pleural effusions with dependent atelectasis. Patchy groundglass opacities are seen throughout both lungs, greatest in the right lower lobe. There are calcified granulomas. Secretions are noted in the trachea. Mediastinum: There are mildly enlarged mediastinal lymph nodes. A precarinal node measures 16 mm in short axis. A pretracheal node measures 10 mm in short axis. [place]: Mildly enlarged bilateral hilar nodes measure up to 10 mm in short axis. Axillae: There is no axillary lymphadenopathy. Upper abdomen: Partially visualized upper abdominal viscera is within normal limits. Skeletal structures: Degenerative change and hyperkyphosis is noted in the thoracic spine. No lytic or blastic bony lesions are seen. IMPRESSION: 1. Unremarkable CT angiogram of the thoracic aorta. 2. There is no evidence of pulmonary embolus in the main, lobar, or segmental pulmonary arteries. 3. There is evidence of fluid overload/congestive failure. 4. Small pleural effusions. 5. Scattered bilateral groundglass opacities likely represent pulmonary edema. Correlate clinically for evidence of a superimposed infectious/inflammatory pneumonitis. A follow-up chest CT scan in 3-4 months time is recommended to document complete resolution. 6. Mildly enlarged mediastinal and hilar lymph nodes are nonspecific and can also be reassessed at follow-up. 7. Coronary artery atherosclerosis. 8. Additional findings as above. ACT 112: Negative or not required by law. Electronically signed by: Noam Hidalgo M.D. 07/07/2023 8:39 AM ECG Additional Comments: Reviewed personally, showing ST wave depressions in the lateral and inferior leads, tachycardic, Code Status & VTE Plan Code Status Patient reports she is a DNR/DNI Supervising Physician Co-Signing Physician Notes I have seen and examined the patient and have discussed the case with the provider above. I have reviewed the advanced practitioner's documentation, and I agree with, and take responsibility for that plan of care. 48 yo smoker presents today with chest pain and difficulty breathing. I saw her briefly prior to her heart catheterization today and she was having difficulty with ongoing chest pressure and was in moderate distress. She had evidence of fluid overload 2/2 acute systolic heart failure and was treated with Lasix in addition to heparin, ASA, metoprolol, nitroglycerin and was taken to cardiac catheterization where she received two stents to the proximal PDA. She is recovering in the ICU and has some persistent shortness of breath. She reports the initial chest pressure has resolved and she has no chest pain at this time. Exam reveals crackles to bilateral lung bases. Otherwise, she is hemodynamically stable and afebrile and oxygenating well on room air. Cardiac exam reveals S1/2 heard with no murmur, reg rate and rhythm. She is mentating clearly and has no peripheral pitting edema. She is net 1L out after Lasix today. Abdomen is soft, NTND. 1. NSTEMI 2. Acute systolic heart failure 3. HTN 4. Tobacco use Post cath she received a statin. She continues on ASA 81m Plavix 75, Atorvastatin. Given her HR is in the 80s and 90s, will add a low dose beta blo cker to start in am. Consider GDMT titration as tolerated including additional MRA and jardiance. Cont Lasix in am after clinical re-evaluation of this need. Smoking cessation. DO Ralf
[2023-07-07] MEDS: HEPARIN SOD (PORCINE) 1000 UNIT/ML IV ONE (09:47)
[2023-07-07] MEDS: HEPARIN SODIUM/DEXTROSE 25,000 UNITS/500 ML BAG IV SCH (09:47)
[2023-07-07] MEDS: Heparin IV Adult Wt-Based Standard w/ INITIAL Bolus Protocol IV STA (09:53)
[2023-07-07 09:58] LABS: Adenovirus PCR Not Detected (NotDetected); Bordetella parapertussis PCR Not Detected (NotDetected); Bordetella pertussis PCR Not Detected (NotDetected); Chlamydia pneumoniae PCR Not Detected (NotDetected); Coronavirus 229E PCR Not Detected (NotDetected); Coronavirus CoV-2 (COVID19)PCR Not Detected (NotDetected); Coronavirus HKU1 PCR Not Detected (NotDetected); Coronavirus NL63 PCR Not Detected (NotDetected); Coronavirus OC43PCR Not Detected (NotDetected); Human Metapneumovirus PCR Not Detected (NotDetected); Influenza A PCR Not Detected (NotDetected); Influenza B PCR Not Detected (NotDetected); Mycoplasma pneumoniae PCR Not Detected (NotDetected); Parainfluenza Virus 1 PCR Not Detected (NotDetected); Parainfluenza Virus 2 PCR Not Detected (NotDetected); Parainfluenza Virus 3 PCR Not Detected (NotDetected); Parainfluenza Virus 4 PCR Not Detected (NotDetected); Respiratory Syncytial VirusPCR Not Detected (NotDetected); Rhinovirus/Enterovirus PCR Not Detected (NotDetected)
--- NOTE | 2023-07-07 10:23 | Cardiology Consultation ---
Date of Consultation July 07, 2023 Assessment & Plan (1) ACS (acute coronary syndrome): (2) Pulmonary edema: (3) HTN (hypertension): Plan 48-year-old female with cardiovascular risk factors of hypertension, family history, chronic tobacco use presents with now approximately 10 hours post initial onset of chest pain with associated signs and symptoms of pulmonary edema, respiratory distress. Troponin elevated greater than 2000, echocardiogram suggestive of multivessel coronary disease with marked hypokinesis inferior posterior wall, hypokinesis septum and anterior wall Plan: Continue IV heparin Patient with marginal hemodynamics with tachycardic and borderline hypotension Patient to go immediately to cardiac catheterization for coronary angiography for coronary definition and treatment as indicated, critically ill History of Present Illness Reason for Consultation: Chest pain. elevated troponin Requesting Physician: Dr Arambula History of Present Illness Patient is a 48-year-old female with history of chronic tobacco use, hypertension, familial history of premature coronary disease who presents now noting having developed chest pain and chest pressure symptoms approximately midnight last evening. Symptoms worsen throughout the night ultimately cul minating worsening shortness of breath and dyspnea. Convinced by family to come to the emergency room "could not breathe" No prior history of myocardial infarction angina congestive heart failure. No history rheumatic fever scarlet fever renal or hepatic disease. Still having symptoms of chest pressure and chest tightness dyspneic with minimal exertion. CT chest and abdomen without aortic dissection cardiac imaging consistent with pulmonary edema And basilar posterior wall hypokinesis of the septum with reduced ejection fraction, mild to moderate echocardiogram performed at bedside in the emergency room demonstrates severe hypokinesis of the mid and basilar posterior and inferior wall, hypokinesis of the septum anterior wall. EF 40% there is mild to moderate mitral insufficiency No history of dye allergy having received for CAT scan today. No history of complications with sedation Allergies Allergy/AdvReac Type Severity Reaction Status Date / Time Penicillins Allergy Severe Throat Unverified 07/07/23 10:14 Swelling Home Medications Medication Instructions Recorded Confirmed Type dihydroxyaluminum sodium carb 334 334 mg PO DAILY PRN Acid Reflux 07/07/23 07/07/23 History mg chewable tablet lisinopril 40 mg tablet 40 mg PO QAM 07/07/23 07/07/23 History Patient History Medical History HTN (hypertension) Intra-abdominal bleeding From ruptured ovarian cyst Hx of ovarian cyst Family History Father Heart disease Hypertension Myocardial infarction Brother Heart disease Social History Smoking Status: Current every day smoker Preferred Language: Pashto Feels Safe at Home: Yes Review of Systems Review of Systems: All systems reviewed & are unremarkable except as noted in HPI & below Physical Exam Constitutional: + ill appearing and + thin Eyes: PERRL, conjunctivae normal, anicteric sclerae ENMT: external ear and nose normal, oropharynx normal Neck: trachea midline, no thyromegaly Respiratory: Auscultation: + rales and + bronchovesicular breath sounds (Right base) Cardiovascular: Rate/Rhythm: regular rate, regular rhythm and + tachycardic Heart Sounds: no murmur Vessels: + JVD, femoral pulses present and radial pulses present Extremities: + edema (Trace) Gastrointestinal (Abdomen): normal bowel sounds, soft, nontender, no hepatosplenomegaly Musculoskeletal: no cyanosis or clubbing, extremities motor strength 5/5 Results & Data Vital Signs (Past 12 Hours) Vital Signs Temp Pulse Pulse Resp BP BP Pulse Ox 07/07/23 09:45 113/88 07/07/23 09:45 89 20 100 07/07/23 09:30 104 H 21 99 07/07/23 09:30 126/96 07/07/23 09:15 122/92 07/07/23 09:15 97 H 29 H 99 07/07/23 09:00 113/86 07/07/23 09:00 101 H 21 99 07/07/23 08:45 101 H 28 H 100 07/07/23 08:45 131/93 07/07/23 08:30 138/98 07/07/23 08:30 100 H 25 H 100 07/07/23 08:23 142/105 H 07/07/23 08:23 106 H 41 H 99 07/07/23 08:05 114 H 07/07/23 08:05 114 H 33 H 156/117 H 99 07/07/23 07:45 36.8 C 106 H 18 166/110 H 97 O2 Del Method O2 Flow Rate 07/07/23 09:45 07/07/23 09:45 Nasal Cannula 3 07/07/23 09:30 Nasal Cannula 3 07/07/23 09:30 07/07/23 09:15 07/07/23 09:15 07/07/23 09:00 07/07/23 09:00 07/07/23 08:45 07/07/23 08:45 07/07/23 08:30 07/07/23 08:30 Nasal Cannula 3 07/07/23 08:23 07/07/23 08:23 Nasal Cannula 3 07/07/23 08:05 07/07/23 08:05 Nasal Cannula 3 07/07/23 07:45 Room Air Laboratory Results Laboratory Results - last 24 hr 07/07/23 07/07/23 07/07/23 08:03 08:08 08:52 WBC 6.74 RBC 4.24 Hgb 13.2 POC Hgb 13.6 Hct 38.8 POC Hct 40 MCV 91.5 MCH 31.1 MCHC 34.0 RDW Std Deviation 45.3 RDW Coeff of Anju 13.5 Plt Count 206 MPV 10.5 Immature Gran % (Auto) 0.3 Neut % (Auto) 79.3 Lymph % (Auto) 10.4 [place] % (Auto) 9.9 Eos % (Auto) 0.0 Baso % (Auto) 0.1 Neut # (Auto) 5.34 Lymph # (Auto) 0.70 L [place] # (Auto) 0.67 H Eos # (Auto) 0.00 Baso # (Auto) 0.01 Immature Gran # (Auto) 0.02 POC Sodium 137 Sodium 136 POC Potassium 4.4 Potassium 4.4 POC Chloride 101 Chloride 104 Carbon Dioxide 23 POC Total CO2 22 L Anion Gap 9 POC Anion Gap 20.0 POC BUN 15 BUN 16 Creatinine 0.73 POC Creatinine 0.7 Est Cr Clr Drug Dosing 74.6 Est GFR ( Amer) 112.1 Est GFR (Non-Af Amer) 96.7 BUN/Creatinine Ratio 21.9 H Glucose 125 H POC Glucose (other) 128 H Calcium 9.2 POC Ioniz Calcium Kamla 1.19 Total Bilirubin 0.4 AST 16 ALT 7 Alkaline Phosphatase 166 H Troponin I High Sens 2064.2 H* B-Natriuretic Peptide 2074 H Total Protein 7.1 Albumin 3.8 Globulin 3.3 Albumin/Globulin Ratio 1.2 Adenovirus (PCR) Not Detected B. pertussis DNA (PCR) Not Detected B.parapertussis DNA PCR Not Detected C. pneumoniae DNA (PCR) Not Detected Coronavirus OC43 (PCR) Not Detected Coronavirus HKU1 (PCR) Not Detected Coronavirus 229E (PCR) Not Detected SARS-CoV-2 (PCR) Not Detected Coronavirus NL63 (PCR) Not Detected Human Metapneumovir PCR Not Detected Influenza Type A (PCR) Not Detected Influenza Type B (PCR) Not Detected M. pneumoniae (PCR) Not Detected Parainfluenza 1 (PCR) Not Detected Parainfluenza 2 (PCR) Not Detected Parainfluenza 3 (PCR) Not Detected Parainfluenza 4 (PCR) Not Detected RSV (PCR) Not Detected Entero/Rhino (PCR) Not Detected 07/07/23 10:31 WBC RBC Hgb POC Hgb Hct POC Hct MCV MCH MCHC RDW Std Deviation RDW Coeff of Anju Plt Count MPV Immature Gran % (Auto) Neut % (Auto) Lymph % (Auto) [place] % (Auto) Eos % (Auto) Baso % (Auto) Neut # (Auto) Lymph # (Auto) [place] # (Auto) Eos # (Auto) Baso # (Auto) Immature Gran # (Auto) POC Sodium Sodium POC Potassium Potassium POC Chloride Chloride Carbon Dioxide POC Total CO2 Anion Gap POC Anion Gap POC BUN BUN Creatinine POC Creatinine Est Cr Clr Drug Dosing Est GFR ( Amer) Est GFR (Non-Af Amer) BUN/Creatinine Ratio Glucose POC Glucose (other) Calcium POC Ioniz Calcium Kamla Total Bilirubin AST ALT Alkaline Phosphatase Troponin I High Sens Pending B-Natriuretic Peptide Total Protein Albumin Globulin Albumin/Globulin Ratio Adenovirus (PCR) B. pertussis DNA (PCR) B.parapertussis DNA PCR C. pneumoniae DNA (PCR) Coronavirus OC43 (PCR) Coronavirus HKU1 (PCR) Coronavirus 229E (PCR) SARS-CoV-2 (PCR) Coronavirus NL63 (PCR) Human Metapneumovir PCR Influenza Type A (PCR) Influenza Type B (PCR) M. pneumoniae (PCR) Parainfluenza 1 (PCR) Parainfluenza 2 (PCR) Parainfluenza 3 (PCR) Parainfluenza 4 (PCR) RSV (PCR) Entero/Rhino (PCR)
[2023-07-07] MEDS: METOPROLOL TARTRATE 1 MG/ML VIAL IV ONE (10:35)
--- OUTSIDE RECORDS SUMMARY | 2023-07-07 10:40 | External Medical Summary | Summary of Care ---
Author Name Unknown Organization [facility] Address [address] [facility] [place] [address] Phone [phone] Care Team Providers Care Relationship Banker Name Role Phone Lilly Santiago MD Primary Care Provide r Reason for Visit * Reason Comments eRx-Medication Refill Encounter Details Date Type Department Care Team (Late st Contact Info) Description 03/21/2023 Refill Family Medicine [address] [address] Lilly Santiago MD [address] [place] [address] [place] [address] Essential hypertension with goal blood pressure less than 140/90 Allergies Active Allergy Reactions Criticality Noted Date Comments Penicillins 07/23/2000 hives Pseudoephedrine Neuro complications (Please comment) 04/04/2010 "i feel hot and spacey" documented as of this encounter (statuses as of 03/23/2023) Medications Medication Sig Dispensed Refills Start Date End Date Status Vitamin B-12 1000 MCG Oral Tablet Take 1,000 mcg by mouth daily. 0 Active Diclofenac Sodium 1 % External Gel (Voltaren) Apply topically to affected area 4 g as needed in the morning AND 4 g as needed at noon AND 4 g as needed in the evening AND 4 g as needed before bedtime (hip or back pain). 350 g 1 07/04/2021 Active rOPINIRole HCl 1 MG Oral Tablet (Requip)Indication s:Restless legs syndrome TAKE 1 TABLET BY MOUTH DAILY AT BEDTIME WITH FOOD 90 Tablet 3 12/02/2021 Active Lisinopril 40 MG Oral TabletIndications: Essential hypertension with goal blood pressure less than 140/90 TAKE 1 TABLET BY MOUTH EVERY DAY 30 Tablet 0 03/23/2023 Active Lisinopril 40 MG Oral TabletIndications: Essential hypertension with goal blood pressure less than 140/90 TAKE 1 TABLET BY MOUTH EVERY DAY 30 Tablet 0 02/19/2023 3 Discontinued documented as of this encounter (statuses as of 03/23/2023) Active Problems Problem Noted Date Diagnosed Date Persistent insomnia 05/29/2017 Tobacco use disorder 03/03/2003 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 documented as of this encounter (statuses as of 03/23/2023) Immunizations Name Administration Dates Next Due COVID-19 mRNA, LNP-s, No Pre serve, 2-Dose Series (Moderna) 09/18/2020,08/21/2020 Seasonal Influenza, Split, IIV3, With Preserve, Inj 02/11/2010,02/11/2009 TDAP (age 10 and older)(Boostrix) 03/18/2018 TDAP (age 11 and older)(Adacel) 12/27/2007 documented as of this encounter Social History Tobacco Use Types Packs/Day Years Used Date Smoking Tobacco: Every Day Cigarettes 0.5 10 Smokeless Tobacco: Never Alcohol Use Standard Drinks/Week Comments Yes 0 (1 standard drink = 0.6 oz pur e alcohol) occassional PHQ-2 Answer Date Recorded PHQ-2 Score 0 06/15/2018 Sex and Gender Information Value Date Recorded Sex Assigned at Not on file Gender Identity Not on file Sexual Orientation Not on file Job Start Date Occupation Industry Not on file Not on file Not on file documented as of this encounter Miscellaneous Notes * Telephone Encounter - Gian Ashraf MD - 03/23/2023 9:14 AM ESTSigned Prescriptions: Disp Refills Lisinopril 40 MG Oral Tablet 30 Tab*0 Sig: TAKE 1 TABLET BY MOUTH EVERY DAY Authorizing Provider: GIAN ASHRAF * Telephone Encounter - Lexi Craig [facility] - 03/22/2023 8:30 AM EST Pending Prescriptions: Disp Refills Lisinopril 40 MG Oral Tablet [Pharmacy Med*30 Tab*0 Sig: TAKE 1 TABLET BY MOUTH EVERY DAY * Telephone Encounter - Lexi Craig [facility] - 03/22/2023 8:27 AM EST Unable to authorize medication refills for pended medication(s) at this time. Part of the protocol criteria used for refill authorization was not satisfied. Patient needs OV and routine labs. Contacted several times Per Refill encounter on 10/13/2022: patient dose not have health insurance and will make ov when she gets insurance. Thank you, Lexi Craig PharmD, CINTHIA Clinical Pharmacist [facility] 03/22/23 8:29 AM [phone] documented in this encounter Plan of Treatment Health Maintenance Due Date Last Done Comments Hepatitis B (1 of 3 - 3-dose series) 1974 Pneumococcal Vaccine: Pediatrics (0 to 5 Years) and At-Risk Patients (6 to 64 Years) (1 - PCV) 1980 Albumin/Creatinine Ratio 1992 Hepatitis C Screening 1992 HPV/Co-Test 2004 Depression Screening 2019 06/15/2018 Cologuard 06/17/2019 Colonoscopy 06/17/2019 Colorectal Cancer Screening 06/17/2019 Fecal Occult Blood Test 06/17/2019 Sigmoidoscopy 06/17/2019 Cervical Cancer Screening 07/03/2019 Pap Smear 07/03/2019 07/02/2016, 04/14, 03/26/2007, Additional history exists Mammogram 07/16/2022 07/16/2021, 06/12, 04/21/2019, Additional history exists GFR 07/30/2022 07/30/2021, 06/12, 06/14/2021, Additional history exists COVID-19 Vaccine ( season) 2022 09/18/2020, 08/21/2020 Influenza Vaccine (FLU shot) (#1) 2022 02/11/2010, 02/11/2009 Lipid Panel 2023 06/15/2018, 06/11, 03/03/2003, Additional history exists Diabetes Screening 07/30/2024 07/30/2021, 0 07/01/2021, 06/14/2021, Additional history exists DTaP,Tdap,and Td Vaccines (3 - Td or Tdap) 03/18/2028 03/18/2018, 12/27/2007 GARDASIL-HPV IMMUNIZATION SERIES Aged Out No longer eligible based on patient's age to complete this topic MENINGOCOCCAL (MENACTRA/MENVEO) Aged Out No longer eligible based on patient's age to complete this topic documented as of this encounter Medical Devices Not on filedocumented as of this encounter Visit Diagnoses Diagnosis Essential hypertension with goal blood pressure less than 140/90 documented in this encounter Care Teams Relationship Banker Relationship Specialty Start Date End Date Lilly Santiago MD [address] [place] [address] [place] [id number] PCP - General Family Medicine 12/03/15 documented as of this encounter
--- OUTSIDE RECORDS SUMMARY | 2023-07-07 10:40 | External Medical Summary | Summary of Care ---
Author Name Unknown Organization [facility] Address [address] [facility] [address] Phone [phone] Care Team Providers Care Electrical Plumbing Supervisor Name Role Phone Lilly Santiago MD Primary Care Provide r Reason for Visit * Reason Onset Date Comments Medication Refill 05/13/2023 Encounter Details Date Type Department Care Team (Late st Contact Info) Description 05/13/2023 Refill Family Medicine [address] [phone] Lilly Santiago MD [address] [place], [place] [address] [address] Essential hypertension with goal blood pressure less than 140/90 Allergies Active Allergy Reactions Criticality Noted Date Comments Penicillins 07/23/2000 hives Pseudoephedrine Neuro complications (Please comment) 04/04/2010 "i feel hot and spacey" documented as of this encounter (statuses as of 05/13/2023) Medications Medication Sig Dispensed Refills Start Date [...] Active rOPINIRole HCl 1 MG Oral Tablet (Requip)Indications:R estless legs syndrome TAKE 1 TABLET BY MOUTH DAILY AT BEDTIME WITH FOOD 90 Tablet 3 12/02/2021 Active Lisinopril 40 MG Oral TabletIndications:Ess ential hypertension with goal blood pressure less than 140/90 Take 1 Tablet by mouth in the morning. 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 documented as of this encounter (statuses as of 05/13/2023) Immunizations Name Administration Dates Next Due COVID-19 [...] encounter Miscellaneous Notes * Telephone Encounter - Laurie Han RN - 05/13/2023 11:04 AM ESTRefused Prescriptions: Disp Refills Lisinopril 40 MG Oral Tablet 30 Tab*0 Sig: Take 1 Tablet by mouth in the morning.Refused By: LAURIE HAN MReason for Refusal: Appt. Required, please call patient- * Telephone Encounter - Laurie Han RN - 05/13/2023 11:03 AM EST Pt has not been seen for 2 years, needs OV and labs to continue medication. Pt was advised in the past to schedule an appt, she has not done this * Telephone Encounter - Lexi Mendez OSA - 05/13/2023 10:59 AM EST Did you pend patient's preferred pharmacy and medication before forwarding?yes Pharmacy: [facility] #[id number] Pending Prescriptions: Disp Refills Lisinopril 40 MG Oral Tablet 30 Tab*0 Sig: Take 1 Tablet by mouth in the morning. Last Visit: 06/14/2021 (in office), Visit date not found (telemedicine) Next Visit: Visit date not found If no future appointments scheduled, and last appointment is greater than a year ago, please schedule patient for a follow-up appointment Last date the medication was ordered: 04.16.23 Is this request for a controlled substance?No Urine Drug Screen:No results found for this or any previous visit. Patient Phone Numbers Labs: Lab Results Component Value Date/Time CREAT 0.7 07/30/2021 02:55 PM CREAT 0.7 06/15/2018 09:37 AM POTASSIUM 4.6 07/30/2021 02:55 PM POTASSIUM 4.8 06/22/2018 10:10 AM TSH 1.23 01/25/2004 03:59 PM LDLCALC 58 06/15/2018 09:37 AM LDLDIRECT NOT APPLICABLE 06/15/2018 09:37 AM ALT 6 (L) 02/14/2019 11:19 AM documented in this encounter Plan of Treatment [...] 06/12, 06/14/2021, Additional history exists COVID-19 Vaccine (3 - 2022- season) 2022 09/18/2020, 08/21/2020 Influenza Vaccine (FLU [...] 140/90 documented in this encounter Care Teams Electrical Plumbing Supervisor Relationship Specialty Start Date End Date Lilly Santiago MD [address] [place] [address] [place] [id number] PCP - General Family Medicine 12/03/15 documented as of this encounter
--- OUTSIDE RECORDS SUMMARY | 2023-07-07 10:40 | External Medical Summary | Summary of Care ---
Author Name Unknown Organization [facility] Address [address] [facility] [address] Phone [phone] Care Team Providers Care Glue Maker Name Role Phone Guerline Santiago MD Primary Care Provide r Reason for Visit * Reason Onset Date Comments Medication Refill 04/16/2023 Encounter Details Date Type Department Care Team (Late st Contact Info) Description 04/16/2023 Refill Family Medicine [address] [address] Guerline Santiago MD [address] [place], [place] [address] [address] Essential hypertension with goal blood pressure less than 140/90 Allergies Active Allergy Reactions Criticality Noted Date Comments Penicillins 07/23/2000 hives Pseudoephedrine Neuro complications (Please comment) 04/04/2010 "i feel hot and spacey" documented as of this encounter (statuses as of 04/16/2023) Medications Medication Sig Dispensed Refills Start Date [...] the morning. 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 documented as of this encounter (statuses as of 04/16/2023) Immunizations Name Administration Dates Next Due COVID-19 [...] encounter Miscellaneous Notes * Telephone Encounter - Guerline Santiago MD - 04/16/2023 11:45 AM EST Signed Prescriptions: Disp Refills Lisinopril 40 MG Oral Tablet 30 Tab*0 Sig: Take 1 Tablet by mouth in the morning. Authorizing Provider: GUERLINE SANTIAGO * Telephone Encounter - Sandra Davalos LPN - 04/16/2023 11:26 AM ESTPending Prescriptions: Disp Refills Lisinopril 40 MG Oral Tablet 30 Tab*0 Sig: Take 1 Tablet by mouth in the morning. * Telephone Encounter - Sandra Davalos LPN - 04/16/2023 11:25 AM EST Pending Prescriptions: Disp Refills Lisinopril 40 MG Oral Tablet 30 Tab*0 Sig: Take 1 Tablet by mouth in the morning. Last Visit: 06/14/2021 (in office), Visit date not found (telemedicine) Next Visit: Visit date not found Last date the medication was ordered: 03/23/2023 Patient Active Problem List Diagnosis Code Family history of other cardiovascular diseases Z82.49 FAM HX-DIABETES MELLITUS Z83.3 Vieira's palsy G51.0 Tobacco use disorder F17.200 Ovarian cyst N83.209 Essential hypertension with goal blood pressure less than 140/90 I10 Persistent insomnia G47.00 Labs: Lab Results Component Value Date/Time CREATININE - [facility] 0.7 07/30/2021 02:55 PM CREATININE - [facility] 0.7 06/15/2018 09:37 AM Lab Results Component Value Date/Time POTASSIUM - [facility] 4.6 07/30/2021 02:55 PM POTASSIUM - [facility] 4.8 06/22/2018 10:10 AM Lab Results Component Value Date/Time TSH - [facility] 1.23 01/25/2004 03:59 PM Lab Results Component Value Date/Time LDL CHOLESTEROL (CALCULATED) - [facility] 58 06/15/2018 09:37 AM LDL CHOLESTEROL (CALCULATED) - [facility] 109 (H) 06/21/2007 03:25 PM LDL CHOLESTEROL (DIRECT MEASURE) - [facility] NOT APPLICABLE 06/15/2018 09:37 AM Lab Results Component Value Date/Time ALT - [facility] 6 (L) 02/14/2019 11:19 AM Hemoglobin AIC Results: No results found for: "HEMOGLOBIN A1C" * Telephone Encounter - Lexi Mendez OSA - 04/16/2023 9:02 AM EST Did you pend patient's preferred pharmacy and medication before forwarding?yes Pharmacy: [facility] #[id number] 90 day Pending Prescriptions: Disp Refills Lisinopril 40 MG Oral Tablet 30 Tab*0 Sig: Take 1 Tablet by mouth in the morning. Last Visit: 06/14/2021 (in office), Visit date not found (telemedicine) Next Visit: Visit date not found If no future appointments scheduled, and last appointment is greater than a year ago, please schedule patient for a follow-up appointment Last date the medication was ordered: 03.23.23 Is this request for a controlled substance?No [...] 140/90 documented in this encounter Care Teams Glue Maker Relationship Specialty Start Date End Date Guerline Santiago MD [address] [place] [address] [place] [address] PCP - General Family Medicine 12/03/15 documented as of this encounter
--- OUTSIDE RECORDS SUMMARY | 2023-07-07 10:40 | External Medical Summary | Summary of Care ---
Author Name Unknown Organization [facility] Address 100 [place] [address] Phone [phone] Care Team Providers Care Customer Insight Analyst Name Role Phone Lilly Santiago MD Primary Care Provide r Reason for Visit * Reason Comments eRx-Medication Refill Encounter Details Date Type Department Care Team (Late st Contact Info) Description 05/23/2023 Refill Family Medicine [address] [phone] Lilly Santiago MD [address] [place] [address] [place] [address] Essential hypertension with goal blood pressure less than 140/90 Allergies Active Allergy Reactions Criticality Noted Date Comments Penicillins 07/23/2000 hives Pseudoephedrine Neuro complications (Please comment) 04/04/2010 "i feel hot and spacey" documented as of this encounter (statuses as of 05/25/2023) Medications Medication Sig Dispensed Refills Start Date [...] as of this encounter (statuses as of 05/25/2023) Active Problems Problem Noted Date Diagnosed Date Persistent insomnia 05/29/2017 Tobacco use disorder 03/03/2003 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 documented as of this encounter (statuses as of 05/25/2023) Immunizations Name Administration Dates Next Due COVID-19 [...] encounter Miscellaneous Notes * Telephone Encounter - Rachael Jameson fashion marketer - 05/25/2023 9:37 AM EST Received message from [facility] regarding patient needing appointment and labs. Placed call to patient toadvise. Left message on voicemail advising of required labs and to call back for an appointment. Thank you, Rachael Jameson Large Animal Husbandry Technician [facility] authorSTREAM.[facility] [place] 05/25/2023, 9:37 AM * Telephone Encounter - Therese Hastings [facility] - 05/25/2023 7:47 AM ESTRefused Prescriptions: Disp Refills Lisinopril 40 MG Oral Tablet 30 Tab*0 Sig: TAKE 1 TABLET BY MOUTH EVERY DAY IN THE MORNING Refused By: THERESE HASTINGS Reason for Refusal: Appt. Required, please call patient * Telephone Encounter - Therese Hastings [facility] - 05/25/2023 7:45 AM EST Per 05/13 RN note: Pt has not been seen for 2 years, needs OV and labs to continue medication. Pt was advised in the past to schedule an appt, she has not done this Refusing refill Please contact patient to schedule office visit with PRIMARY CARE and advise of labs ordered for blood draw AND URINE specimen (patient will have to be able to void to provide sample).. Fasting is not required. Advise to obtain labs before refills will be approved. Last Visit: 06/14/2021 (in office), Visit date not found (telemedicine) Next Visit: Visit date not found Thank You, Therese Hastings [facility] Clinical Pharmacist [facility] ([facility] [place]) [phone] 05/25/2023, 7:46 AM documented in this encounter Plan of [...] 140/90 documented in this encounter Care Teams Customer Insight Analyst Relationship Specialty Start Date End Date Lilly Santiago MD [address] [place] [address] [place] [address] PCP - General Family Medicine 12/03/15 documented as of this encounter
--- OUTSIDE RECORDS SUMMARY | 2023-07-07 10:40 | External Medical Summary | Summary of Care ---
Author Name Unknown Organization [facility] Address [address] [facility] [address] Phone [phone] Care Team Providers Care Flooring Helper Name Role Phone Lilly Santiago MD Primary Care Provide r Reason for Visit * Reason Onset Date Comments Medication Refill 05/13/2023 Encounter Details Date Type Department Care Team (Late st Contact Info) Description 05/13/2023 Refill Family Medicine [address] [phone] Lilly Santiago MD [address] [place], [place] [address] [address] Essential hypertension with goal blood [...] and medication before forwarding?yes Pharmacy: [facility] [id number] Pending Prescriptions: Disp Refills Lisinopril 40 [...] 140/90 documented in this encounter Care Teams Flooring Helper Relationship Specialty Start Date End Date Lilly Santiago MD [address] [place] [address] [place] [id number] PCP - General Family Medicine 12/03/15 documented as of this encounter
--- OUTSIDE RECORDS SUMMARY | 2023-07-07 10:40 | External Medical Summary | Summary of Care ---
Author Name Unknown Organization [facility] Address 100 [place] [address] Phone [phone] Care Team Providers Care Pipe Fitter Marine Name Role Phone Lilly Santiago MD Primary Care Provide r Reason for Visit * Reason Comments eRx-Medication Refill Encounter Details Date Type Department Care Team (Late st Contact Info) Description 05/16/2023 Refill Family Medicine [address] [phone] Lilly Santiago MD [address] [place] [address] [place] [address] Essential hypertension with goal blood pressure less than 140/90 Allergies Active Allergy Reactions Criticality Noted Date Comments Penicillins 07/23/2000 hives Pseudoephedrine Neuro complications (Please comment) 04/04/2010 "i feel hot and spacey" documented as of this encounter (statuses as of 05/18/2023) Medications Medication Sig Dispensed Refills Start Date [...] as of this encounter (statuses as of 05/18/2023) Active Problems Problem Noted Date Diagnosed Date Persistent insomnia 05/29/2017 Tobacco use disorder 03/03/2003 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 documented as of this encounter (statuses as of 05/18/2023) Immunizations Name Administration Dates Next Due COVID-19 [...] encounter Miscellaneous Notes * Telephone Encounter - Trisha Mercado [facility] - 05/18/2023 6:50 AM EST Refused Prescriptions: Disp Refills Lisinopril 40 MG Oral Tablet 30 Tab*0 Sig: TAKE 1 TABLET BY MOUTH EVERY DAY IN THE MORNINGRefused By: TRISHA MERCADO for Refusal: Patient Should Contact Provider First documented in this encounter Plan of Treatment [...] 140/90 documented in this encounter Care Teams Pipe Fitter Marine Relationship Specialty Start Date End Date Lilly Santiago MD [address] [place] [address] [place] [address] PCP - General Family Medicine 12/03/15 documented as of this encounter
--- OUTSIDE RECORDS SUMMARY | 2023-07-07 10:41 | External Medical Summary | Summary of Care ---
Author Name Unknown Organization [facility] Address [address] [facility] [place] [address] Phone [phone] Care Team Providers Care Plywood Patcher Name Role Phone Guerline Santiago MD Primary Care Provide r Reason for Visit * Reason Comments eRx-Medication Refill Encounter Details Date Type Department Care Team Description 01/17/2023 Refill Family Medicine [address] [address] Guerline Santiago MD [address] [place] [address] [place]z [address] Essential hypertension with goal blood pressure less than 140/90 Allergies Active Allergy Reactions Severity Noted Date Comments Penicillins 07/23/2000 hives Pseudoephedrine Neuro complications (Please comment) 04/04/2010 "i feel hot and spacey" documented as of this encounter (statuses as of 01/19/2023) Medications Medication Sig Dispensed Refills Start Date [...] BY MOUTH EVERY DAY 30 Tablet 0 01/18/2023 Active Lisinopril 40 MG Oral TabletIndications: Essential hypertension with goal blood pressure less than 140/90 TAKE 1 TABLET BY MOUTH EVERY DAY 90 Tablet 0 10/13/2022 3 Discontinued documented as of this encounter (statuses as of 01/19/2023) Active Problems Problem Noted Date Persistent insomnia 05/29/2017 Tobacco use disorder 03/03/2003 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 documented as of this encounter (statuses as of 01/19/2023) Immunizations Name Administration Dates Next Due COVID-19 [...] = 0.6 oz pur e alcohol) occassional Sex Assigned at Date Recorded Not on file Job Start Date Occupation Industry Not on file Not on file Not on file documented as of this encounter Miscellaneous Notes * Telephone Encounter - Rachael Jameson paradichlorobenzene tender - 01/19/2023 9:11 AM EDT Received message from [facility] regarding patient needing appointment and labs. Placed call to patient toadvise. Pt was agreeable to set up appointment but did not want to schedule at this time. Patient advised they will call back to set up appointment. Thank you, Rachael Jameson Small Engine Specialist [employer] 01/19/2023, 9:11 AM * Telephone Encounter - Nando Ordonez [facility] - 01/18/2023 3:03 PM EDT Signed Prescriptions: Disp Refills Lisinopril 40 MG Oral Tablet 30 Tab*0 Sig: TAKE 1 TABLET BY MOUTH EVERY DAY Authorizing Provider: GUERLINE SANTIAGO Ordering User: NANDO ORDONEZ * Telephone Encounter - Nando Ordonez [facility] - 01/18/2023 2:53 PM EDT Provided 30 days supply with 0 refill. Per refill protocol patient should have OV with PCP and ROUTINE LABS on file within past year. Reviewed AMP report, Care Gaps/Health Maintenance, medications list, and for any routine labs typically ordered for this patient. Lab orders placed. Please contact patient to schedule office visit with PRIMARY CARE and advise of labs ordered for blood draw AND URINE specimen (patient will have to be able to void to provide sample).. Recommend patient to fast if able for labs. Patient may still have water and regular medications. Advise to obtain labs before requesting the next refill. Last Visit: 06/14/2021 (in office), Visit date not found (telemedicine) Next Visit: Visit date not found Nando Davalos PharmD Clinical Pharmacist [facility] ([facility]) (formerly Telepharmacy) [phone] 01/18/2023, 3:02 PM documented in this encounter Plan of Treatment [...] 140/90 documented in this encounter Care Teams Plywood Patcher Relationship Specialty Start Date End Date Guerline Santiago MD [address] [place] [address] [place]z [address] PCP - General Family Medicine 12/03/15 documented as of this encounter
--- OUTSIDE RECORDS SUMMARY | 2023-07-07 10:41 | External Medical Summary | Summary of Care ---
Author Name Unknown Organization [facility] Address [address] [facility] [address] Phone [phone] Care Team Providers Care Quill Winder Name Role Phone Lilly Santiago MD Primary Care Provide r Reason for Visit * Reason Onset Date Comments Medication Refill 02/16/2023 Encounter Details Date Type Department Care Team (Late st Contact Info) Description 02/16/2023 Refill Family Medicine [address] [phone] Lilly Santiago MD [address] [place], [place] [address] [address] Essential hypertension with goal blood pressure less than 140/90 Allergies Active Allergy Reactions Criticality Noted Date Comments Penicillins 07/23/2000 hives Pseudoephedrine Neuro complications (Please comment) 04/04/2010 "i feel hot and spacey" documented as of this encounter (statuses as of 02/16/2023) Medications Medication Sig Dispensed Refills Start Date [...] EVERY DAY 30 Tablet 0 01/18/2023 Active documented as of this encounter (statuses as of 02/16/2023) Active Problems Problem Noted Date Diagnosed Date Persistent insomnia 05/29/2017 Tobacco use disorder 03/03/2003 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 documented as of this encounter (statuses as of 02/16/2023) Immunizations Name Administration Dates Next Due COVID-19 [...] encounter Miscellaneous Notes * Telephone Encounter - Yuly Han RN - 02/16/2023 12:02 PM EST Appt required prior to giving more meds, several messages have been left for pt over past few months * Telephone Encounter - Lexi Mendez - 02/16/2023 11:05 AM EST Did you pend patient's preferred pharmacy and medication before forwarding?yes Pharmacy: [id number] [id number] [facility] Pending Prescriptions: Disp Refills Lisinopril 40 MG Oral Tablet 30 Tab*0 Sig: Take 1 Tablet by mouth in the morning. Last Visit: 06/14/2021 (in office), Visit date not found (telemedicine) Next Visit: Visit date not found If no future appointments scheduled, and last appointment is greater than a year ago, please schedule patient for a follow-up appointment Last date the medication was ordered: 01.18.23 Is this request for a controlled substance?No [...] 140/90 documented in this encounter Care Teams Quill Winder Relationship Specialty Start Date End Date Lilly Santiago MD [address] [place] [address] [place]z [address] PCP - General Family Medicine 12/03/15 documented as of this encounter
--- OUTSIDE RECORDS SUMMARY | 2023-07-07 10:41 | External Medical Summary | Summary of Care ---
Author Name Unknown Organization [facility] Address [address] [place] [address] Phone [phone] Care Team Providers Care Rn Complex Care Name Role Phone Guerline Santiago MD Primary Care Provide r Reason for Visit * Reason Comments eRx-Medication Refill Encounter Details Date Type Department Care Team (Late st Contact Info) Description 02/18/2023 Refill Family Medicine [address] [address] Guerline Santiago MD [address] [place] [address] [place] [address] Essential hypertension with goal blood pressure less than 140/90 Allergies Active Allergy Reactions Criticality Noted Date Comments Penicillins 07/23/2000 hives Pseudoephedrine Neuro complications (Please comment) 04/04/2010 "i feel hot and spacey" documented as of this encounter (statuses as of 02/19/2023) Medications Medication Sig Dispensed Refills Start Date [...] MOUTH EVERY DAY 30 Tablet 0 02/19/2023 Active Lisinopril 40 MG Oral TabletIndications: Essential hypertension with goal blood pressure less than 140/90 TAKE 1 TABLET BY MOUTH EVERY DAY 30 Tablet 0 01/18/2023 3 Discontinued documented as of this encounter (statuses as of 02/19/2023) Active Problems Problem Noted Date Diagnosed Date Persistent insomnia 05/29/2017 Tobacco use disorder 03/03/2003 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 documented as of this encounter (statuses as of 02/19/2023) Immunizations Name Administration Dates Next Due COVID-19 [...] Telephone Encounter - Guerline Santiago MD - 02/19/2023 10:02 AM EST Signed Prescriptions: Disp Refills Lisinopril 40 MG Oral Tablet 30 Tab*0 Sig: TAKE 1 TABLET BY MOUTH EVERY DAY Authorizing Provider: GUERLINE SANTIAGO * Telephone Encounter - Brianna Sun [facility] - 02/18/2023 5:28 PM ESTPending Prescriptions: Disp Refills Lisinopril 40 MG Oral Tablet [Pharmacy Med*30 Tab*0 Sig: TAKE 1 TABLET BY MOUTH EVERY DAY * Telephone Encounter - Brianna Sun [facility] - 02/18/2023 5:27 PM EST Unable to authorize medication refills for pended medication(s) at this time. Part of the protocol criteria used for refill authorization was not satisfied. Patient needs OV and routine labs. Per Refill encounter on 10/13/2022: patient dose not have health insurance and will make ov when she gets insurance. Pending Prescriptions: Disp Refills Lisinopril 40 MG Oral Tablet [Pharmacy Me*30 Tab*0 Sig: TAKE 1 TABLET BY MOUTH EVERY DAY Please approve if appropriate. Thank you, Brianna Sun RPh Clinical Pharmacist [facility] ([facility]) (formerly Telepharmacy) 02/18/23 5:27 PM [phone] * Telephone Encounter - Brianna Sun RPh - 02/18/2023 5:26 PM EST Did you pend patient's preferred pharmacy and medication before forwarding?yes Pharmacy: [id number] [id number] [facility] Pending Prescriptions: Disp Refills Lisinopril 40 MG Oral Tablet [Pharmacy Me*30 Tab*0 Sig: TAKE 1 TABLET BY MOUTH EVERY DAY Last Visit: 06/14/2021 (in office), Visit date not found (telemedicine) Next Visit: Visit date not found If no future appointments scheduled, and last appointment is greater than a year ago, please schedule patient for a follow-up appointment Last date the medication was ordered: 01/18/2023 Is this request for a controlled substance?No [...] 140/90 documented in this encounter Care Teams Rn Complex Care Relationship Specialty Start Date End Date Guerline Santiago MD [address] [place] [address] [place] [address] PCP - General Family Medicine 12/03/15 documented as of this encounter
--- OUTSIDE RECORDS SUMMARY | 2023-07-07 10:41 | External Medical Summary | Summary of Care ---
Author Name Unknown Organization [facility] Address [address] [facility] [address] Phone [phone] Care Team Providers Care Chef Teacher Name Role Phone Lilly Santiago MD Primary Care Provide r Reason for Visit * Reason Onset Date Comments Medication Refill 02/16/2023 Encounter Details Date Type Department Care Team (Late st Contact Info) Description 02/16/2023 Refill Family Medicine [address] [address] Lilly Santiago MD [address] [place], [place] [address]aya [address] Essential hypertension with goal blood [...] and medication before forwarding?yes Pharmacy: [id number] [id number] [facility] Pending Prescriptions: Disp Refills Lisinopril 40 [...] 140/90 documented in this encounter Care Teams Chef Teacher Relationship Specialty Start Date End Date Lilly Santiago MD [address] [place] [address] [place]z [address] PCP - General Family Medicine 12/03/15 documented as of this encounter
--- OUTSIDE RECORDS SUMMARY | 2023-07-07 10:41 | External Medical Summary | Summary of Care ---
Author Name Unknown Organization [facility] Address [address] [facility] [place] [address] Phone [phone] Care Team Providers Care Research Methods Instructor Name Role Phone Guerline Lamar MD Primary Care Provide r Reason for Visit * Reason Comments eRx-Medication Refill Encounter Details Date Type Department Care Team (Late st Contact Info) Description 07/16/2022 Refill Family Medicine [address] [phone] Guerline Lamar MD [address] [place] [address] [place] [address] Essential hypertension with goal blood pressure less than 140/90 Allergies Active Allergy Reactions Criticality Noted Date Comments Penicillins 07/23/2000 hives Pseudoephedrine Neuro complications (Please comment) 04/04/2010 "i feel hot and spacey" documented as of this encounter (statuses as of 02/13/2023) Medications Medication Sig Dispensed Refills Start Date [...] TABLET BY MOUTH EVERY DAY 90 Tablet 3 07/10/2021 3 Discontinued Lisinopril 40 MG Oral TabletIndications: Essential hypertension with goal blood pressure less than 140/90 TAKE 1 TABLET BY MOUTH EVERY DAY 90 Tablet 0 07/17/2022 3 Discontinued documented as of this encounter (statuses as of 02/13/2023) Active Problems Problem Noted Date Diagnosed Date Persistent insomnia 05/29/2017 Tobacco use disorder 03/03/2003 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 documented as of this encounter (statuses as of 02/13/2023) Immunizations Name Administration Dates Next Due COVID-19 [...] encounter Miscellaneous Notes * Telephone Encounter - Valentin Loco - 02/13/2023 7:45 PM EDT Received message from [facility] regarding patient needing appointment. Patient was notified. Successfully contacted patient and provided [facility] message. * Telephone Encounter - Connie Owens PHARM Tech - 02/13/2023 5:50 AM EDT Received message from [facility] regarding patient needing appointment. Letter was sent out to patient to advise. Thank you, Connie Owens Chiller Technician [facility] ([facility]) (Formerly Telepharmacy) 02/13/2023,5:50 AM * Telephone Encounter - Rodo Sánchez [facility] - 07/17/2022 11:02 AM EDTSigned Prescriptions: Disp Refills Lisinopril 40 MG Oral Tablet 90 Tab*0 Sig: TAKE 1 TABLET BY MOUTH EVERY DAY Authorizing Provider: GUERLINE LAMAR Ordering User: RODO SÁNCHEZ * Telephone Encounter - Rodo Sánchez [facility] - 07/17/2022 11:01 AM EDT Please contact patient so that an appointment can be scheduled with her PRIMARY CARE provider. Refill authorized to hold patient over in the mean time. Last Visit: 06/14/2021 (in office), Visit date not found (telemedicine) Next Visit: Visit date not found Rodo Davalos Pharm.D. Clinical Pharmacist [facility] [phone] 07/17/2022, 11:01 AM documented in this encounter Plan of [...] 06/14/2021, Additional history exists COVID-19 Vaccine (3 2022-24 season) 2022 09/18/2020, 08/21/2020 Influenza Vaccine (FLU [...] 140/90 documented in this encounter Care Teams Research Methods Instructor Relationship Specialty Start Date End Date Guerline Lamar MD [address] [place] [address] [place] Velez [phone] PCP - General Family Medicine 12/03/15 documented as of this encounter
[2023-07-07] MEDS: ONDANSETRON INJ 2 MG/ML 2 ML VIAL ONE (11:00)
--- NOTE | 2023-07-07 11:00 | Pre Anesthesia Assessment ---
Date of Service July 07, 2023 Pre Sedation Assessment Vital Signs Temp Pulse Pulse Resp BP BP Pulse Ox 07/07/23 10:38 74 18 88/65 L 97 07/07/23 10:30 102 H 22 99 07/07/23 10:00 111/89 07/07/23 10:00 98 H 24 99 07/07/23 09:45 113/88 07/07/23 09:45 89 20 100 07/07/23 09:30 104 H 21 99 07/07/23 09:30 126/96 07/07/23 09:15 122/92 07/07/23 09:15 97 H 29 H 99 07/07/23 09:00 113/86 07/07/23 09:00 101 H 21 99 07/07/23 08:45 101 H 28 H 100 07/07/23 08:45 131/93 07/07/23 08:30 138/98 07/07/23 08:30 100 H 25 H 100 07/07/23 08:23 142/105 H 07/07/23 08:23 106 H 41 H 99 07/07/23 08:05 114 H 07/07/23 08:05 114 H 33 H 156/117 H 99 07/07/23 07:45 98.2 F 106 H 18 166/110 H 97 O2 Del Method O2 Flow Rate 07/07/23 10:38 Room Air 07/07/23 10:30 07/07/23 10:00 07/07/23 10:00 07/07/23 09:45 07/07/23 09:45 Nasal Cannula 3 07/07/23 09:30 Nasal Cannula 3 07/07/23 09:30 07/07/23 09:15 07/07/23 09:15 07/07/23 09:00 07/07/23 09:00 07/07/23 08:45 07/07/23 08:45 07/07/23 08:30 07/07/23 08:30 Nasal Cannula 3 07/07/23 08:23 07/07/23 08:23 Nasal Cannula 3 07/07/23 08:05 07/07/23 08:05 Nasal Cannula 3 07/07/23 07:45 Room Air Cardiovascular + regular rate Respiratory + respiratory effort normal Pre-Sedation Airway Assessment Smoking Status: Current every day smoker Short, Thick Neck: No Thyromental Distance: < 3.5 Finger Breadths Oral Cavity: + Dentures Mallampati Class: II ASA: ASA2 NPO Status Date of Last Intake of Fluids: 07/07/23 Time of Last Intake of Fluids: 23:00 Date of Last Intake of Solid Food: 07/06/23 Procedure Planning Contraindications for Sedation: none Current Medications Reviewed: Yes Notes The planned sedation has been discussed with the patient. Informed Consent was obtained. I have identified the patient, determined the appropriateness of sedation and have assessed the patient immediately prior to the procedure. All medicine(s) and interventions are by my order.
[2023-07-07] MEDS: niCARdipine HCL INJ 2.5 MG/ML 10 ML AMP ONE (11:49)
[2023-07-07] MEDS: fentaNYL citrate PF 100 MCG/2 ML VIAL ONE (12:00)
[2023-07-07] MEDS: NOREPINEPHRINE/D5W 4 MG/250 ML IV ONE (12:03)
[2023-07-07] MEDS: NITROGLYCERIN/D5W 100MCG/ML 20ML SYR ONE (12:03)
[2023-07-07] MEDS: PHENYLEPHRINE 100MCG/ML 5ML SYR ONE (12:04)
[2023-07-07] MEDS: MIDAZOLAM HCL 1 MG/ML 2ML VIAL ONE (12:04)
[2023-07-07] MEDS: HEPARIN (PORCINE) 1000 UNIT/ML 10 ML (CATH LAB USE ONLY) ONE (12:05)
[2023-07-07] MEDS: OPTIRAY 350 ONE (12:09)
--- NOTE | 2023-07-07 12:32 | Post Anesthesia Assessment ---
Date of Service July 07, 2023 Post Sedation Assessment Vital Signs Temp Pulse Pulse Resp BP BP Pulse Ox 07/07/23 10:38 74 18 88/65 L 97 07/07/23 10:30 102 H 22 99 07/07/23 10:00 111/89 07/07/23 10:00 98 H 24 99 07/07/23 09:45 113/88 07/07/23 09:45 89 20 100 07/07/23 09:30 104 H 21 99 07/07/23 09:30 126/96 07/07/23 09:15 122/92 07/07/23 09:15 97 H 29 H 99 07/07/23 09:00 113/86 07/07/23 09:00 101 H 21 99 07/07/23 08:45 101 H 28 H 100 07/07/23 08:45 131/93 07/07/23 08:30 138/98 07/07/23 08:30 100 H 25 H 100 07/07/23 08:23 142/105 H 07/07/23 08:23 106 H 41 H 99 07/07/23 08:05 114 H 07/07/23 08:05 114 H 33 H 156/117 H 99 07/07/23 07:45 98.2 F 106 H 18 166/110 H 97 O2 Del Method O2 Flow Rate 07/07/23 10:38 Room Air 07/07/23 10:30 07/07/23 10:00 07/07/23 10:00 07/07/23 09:45 07/07/23 09:45 Nasal Cannula 3 07/07/23 09:30 Nasal Cannula 3 07/07/23 09:30 07/07/23 09:15 07/07/23 09:15 07/07/23 09:00 07/07/23 09:00 07/07/23 08:45 07/07/23 08:45 07/07/23 08:30 07/07/23 08:30 Nasal Cannula 3 07/07/23 08:23 07/07/23 08:23 Nasal Cannula 3 07/07/23 08:05 07/07/23 08:05 Nasal Cannula 3 07/07/23 07:45 Room Air Recovery Score Activity: Moves 4 extremities Respiration: Deep Breath/Cough Circulation: +/-20% PreAnes Value Consciousness: Fully Awake Oxygen Saturation: O2 needed for >90% Discharge Sedation Level of Care: Fast Track Phase II Post Sedation Plan On clinical assessment, the patient appears to have tolerated the sedation without complications. Patient is recovering as anticipated. Patient will continue to be monitored by nursing and may be discharged when sedation discharge criteria are met per below protocol. Upon Completions of procedure up to 15 minutes continue every 5 minute vital signs and the P.A.R. score; then discharge to a Phase I or Fast Track to Phase II per the following guidelines: * Discharge Patient to appropriate Phase II area if PAR is 8 or greater or ret urn to pre- procedure baseline. The post - procedure orders will be as directed. * If PAR score is less than 8 or not return to pre-procedure baseline then patient will follow Phase I monitoring till PAR is reached for Phase II. The Phase I may be done in procedure room or may call to secure a Phase I area. * If naloxone or flumazenil are used for reversal, hold in Phase I for continued monitoring from when last reversal dose was given for a minimum of 60 minutes or longer pending the nurse and/or physician discretion of patient condition before discharge to Phase II. Please call the Sedation Physician to re-evaluate and complete post-note for discharge to Phase II area. Do NOT discharge from procedure sedation or Phase 1 until post- sedation evaluation note is complete by procedure /sedation MD Sedation Discharge Instructions to be given to the patient at discharge to home.
[2023-07-07] MEDS: CLOPIDOGREL BISULFATE 300 MG TAB ONE (12:36)
--- NOTE | 2023-07-07 12:44 | Cardiac Catheterization ---
[facility] Data: Can Dryer Cardiac Status Clinical evaluation leading to the procedure CAD Presenation: Non STEMI Anginal Classification: CCS IV Diagnostic Physicians Name: Antolin Hernandez MD Closure Device Recommendations: PCI without planned CABG Cardiac Cath Procedure Full Procedure Date July 07, 2023 Pre-Procedure Diagnosis Pre-Procedure Diagnosis: Non STEMI and CHF AUC Score AUC Score: 8 Post-Procedure Diagnosis Post-Procedure Diagnosis: Severe CAD, Successful PCI and Elevated Intracardiac Pressures Procedure(s) Performed Procedure(s) Performed: Coronary Angiography, Left Heart Cath and Drug Eluting Stent Surveying Technician Antolin Hernandez MD Milker Machine(s) Showers Estimated Blood Loss Estimated Blood Loss: 20 Medication(s) Medication(s): Clopidogrel, Fentanyl, Heparin, Lidocaine 1%, Nicardipine, Nitroglycerin and Versed Summary of Findings Indication: NSTEMI, acute heart failure Access: 6 Fr slender right radial artery Catheters: [place], 5 Fr JR4 guide Findings: LM -normal caliber, no significant disease LAD -medium caliber, no significant disease, distal vessel tapers to apex. Medium D1 without significant disease. Circumflex -medium caliber, no significant disease. Medium branching OM 2 without disease. RCA -dominant, 20% proximal, mid segment luminal irregularities up to 20%. Distal vessel without significant disease. Angulated medium caliber RPDA with proximal 70 to 80% stenosis. LVEDP -15-18 -- PCI -- Antithrombotic therapy: Heparin, clopidogrel Procedure: RCA cannulated with 5 Fr JR4 guide Pre-procedure flow GINA 3 Attempt made to probe distal end of terminal right PLB due to some suspicion of acute occlusion. No evidence of acute occlusion noted, possible occlusion appeared to be bend in vessel seen more clearly on GRENADIAN view. Chief Vendor Quality 50 wire passed across proximal RCA lesion into distal vessel Proximal RCA lesion predilated with 2.0 compliant balloon Dilated lesion stented with 2.25 x 15 mm Joseph drug-eluting stent Stent postdilated with stent balloon Apparent residual stenosis/edge dissection at proximal edge of stent Second DIONTE (2.0 x 8 mm [place]) placed to proximal RCA overlapping proximal edge of initial stent Stent post-dilated with stent balloon to high atmospheres Ostial RPDA spasm improved with IC vasodilators Post procedure GINA 3 flow, stents well expanded with minimal residual stenosis and no apparent cardiac complications. Intraprocedure course complicated by hypotension requiring 100 mcg bolus of phenylephrine and norepinephrine infusion up to 0.1, weaned off by end of procedure. Arterial Closure: TR band Summary: 1. Severe single vessel coronary artery disease --80% proximal RPDA No significant nonculprit coronary artery disease 2. Borderline intracardiac filling pressure 3. Successful PCI of proximal RPDA with 2 overlapping DIONTE (2.0 x 8, 2.25 x 12 mm [place]). Recommendations: To PCU for continued monitoring Loaded with clopidogrel 600 mg in Can Dryer Continue dual-antiplatelet therapy for at least 1 year Additional diuresis, GDMT and ASCVD risk factor modification per Dr. Waite Consult cardiac Rehab Hemodynamics Rest Ao:: 97/60/74 Final Ao: 111/77/90 LV: 86/18 Recommendations Recommendations: PCI without planned CABG Specimens Specimens: None Radiation Exposure (mGy) 2964 Contrast (mls) 220 Anesthesia Moderate 7726-0484 Procedural Complication(s) None Disposition PCU I attest to the content of the Intraoperative Record and any orders documented therein. Any exceptions are noted below. [facility] Card Cath Procedure Codes Cardiac Catheterization Procedure 1: Cardiovascular Cath Procedures: 71615 Coronaries and LHC (+/-LV) Moderate Sedation Procedure 1: Sedation/Anesthesia: 52025 Mod Sedation by the same physician;Init15 Min Child Age 5 & Up Procedure 2: Sedation/Anesthesia: 90848 Mod Sedation by the same physician; Ea [id number] Minutes Stenting Procedure 1: Cardiovascular Stent Procedures: 07638 Perc transcatheter placement of intracoronary stent(s), with ang PG Care Time/CCT Total # of Minutes Spent Total Time Spent with Patient: Total time spent is greater than 50% in coordination of care (as documented) at patient's floor/unit and/or counseling patient:
--- NOTE | 2023-07-07 13:11 | Electrocardiogram Report ---
Test Reason : Blood Pressure : / mmHG Vent. Rate : 109 BPM Atrial Rate : 109 BPM P-R Int : 116 ms QRS Dur : 070 ms QT Int : 284 ms P-R-T Axes : 063 069 063 degrees QTc Int : 382 ms Sinus tachycardia Possible Left atrial enlargement Nonspecific ST abnormality Abnormal ECG When compared with ECG of 18-JUN-2009 13:28, Vent. rate has increased BY [address] now depressed in Inferior leads ST now depressed in Anterior leads T wave amplitude has increased in Anterior leads Confirmed by Adonis Linares ([id number]) on 07/07/2023 1:11:25 PM Referred By: REFERRED SELF Confirmed By:Adonis Linares
[2023-07-07] MEDS ORDERED: ONDANSETRON INJ 2 MG/ML 2 ML VIAL IV PRN (13:44)
[2023-07-07 13:54] LABS: Appearance Urine Clear (Clear); Bilirubin Urine Negative (Negative); Blood Urine Negative (Negative); Color Urine Yellow; Glucose Urine UA Negative (Negative); Ketones Urine Negative (Negative); Leukocyte Esterase Urine Negative (Negative); Nitrite Urine Negative (Negative); Protein Urine Negative (Negative); Specific Gravity Urine > 1.045 (1.000-1.030); Urobilinogen Urine Negative (Negative)
[2023-07-07] MEDS: ATORVASTATIN 40 MG TAB PO SCH (14:35)
[2023-07-07] MEDS: ACETAMINOPHEN 325 MG TAB PO PRN (19:50)
[2023-07-07] MEDS ORDERED: ATORVASTATIN 40 MG TAB PO SCH (21:00)
[2023-07-08 05:24] LABS: BUN Creatinine Ratio 18.4 (10-20); Calcium 8.4 mg/dl (8.6-10.3); Chol HDL Ratio 2.3 (0-5); Creatinine Clr Calc Pharmacy 71.2 ml/min; Est GFR (African American) 106.8 ml/min; Est GFR (Non-African American) 92.1 ml/min; Potassium 3.8 mmol/L (3.5-5.1)
[2023-07-08] MEDS: COUGH DROP (SUGAR FREE) LOZ 24 LOZ/1 BOX BUCCAL STA (05:40)
[2023-07-08] MEDS: guaiFENesin SUGAR FREE 200 MG/10 ML UDC PO PRN (05:41)
[2023-07-08 07:29] LABS: Estimated Average Glucose 105 mg/dl; Hemoglobin A1C 5.3 % (4.5-5.6)
[2023-07-08] MEDS: ASPIRIN 81 MG ECTAB PO SCH (08:14)
[2023-07-08] MEDS: CLOPIDOGREL BISULFATE 75 MG TAB PO SCH (08:14)
--- NOTE | 2023-07-08 08:43 | XRay Report ---
XR chest 1V portable CLINICAL HISTORY: CHF, COPD COMPARISON STUDY: Chest CT July 07, 2023. FINDINGS: There is no pneumothorax or pleural effusion. The pleural effusions shown on prior chest CT are not visualized by radiography. Pulmonary edema has improved. There is pulmonary vascular congest ion. Cardiomediastinal silhouette is unremarkable. There is no consolidation. IMPRESSION: Interval improvement in pulmonary edema. Pulmonary vascular congestion. ACT 112: Negative or not required by law. Electronically signed by: Nabor Wallace M.D. 07/08/2023 8:42 AM
[2023-07-08] MEDS ORDERED: ASPIRIN 81 MG ECTAB PO SCH (09:00)
--- NOTE | 2023-07-08 09:01 | Hospitalist Progress Note ---
Date of Service July 08, 2023 Assessment & Plan (1) NSTEMI (non-ST elevated myocardial infarction): (2) Tobacco use: (3) Pleural effusion: (4) HTN (hypertension): Plan: NSTEMI HTN Tobacco Use Pleural Effusion - EKG reviewed as above showing ST wave depressions in lateral and inferior leads. - Trended cardiac biomarkers, initial set was 2063, trend until peaks and then one more, Q6H - Pt w/ nausea and vomiting on admission, provided antiemetic - BNP 2073m s/p lasix IV, inserted perera cath for strict I/Os, large pleural effusions seen on imaging likely a result of the above. - Pain control with dilaudid Iv prn as this helped her - Given full dose asa and started on heparin gtt, continue - Cessation of tobacco encouraged at bedside, no nicotine patch at this time. - Echo -LV is normal in size. Normal LV wall thickness. Inferior wall and posterior wall are severely hypokinetic at the base and mid level. Anterior wall and inferior and anterior septum are hypokinetic. EF 35 to 40%. Diastolic dysfunction, grade 2, consistent with congestive heart failure. LA is mildly dilated. Mild to moderate mitral regurg. There is trace tricuspid regurg. RV systolic pressure is elevated at 40 to 50 mmHg. - Cardiology consulted - discussed with Dr. Waite -> labor standards director Summary: 1. Severe single vessel coronary artery disease --80% proximal RPDA No significant nonculprit coronary artery disease 2. Borderline intracardiac filling pressure 3. Successful PCI of proximal RPDA with 2 overlapping DIONTE (2.0 x 8, 2.25 x 12 mm [place]). Plan: Loaded with clopidogrel 600 mg in Junior Assistant Manager Continue dual-antiplatelet therapy for at least 1 year Will change lisinopril to losartan Continue beta-annabelle antiplatelet therapy and lipid-lowering therapy Pulmonary medicine consulted - Mucinex-DM to be used on as-needed basis along with flutter valve for chronic bronchitis, Start Incruse to be used on daily basis. IS Dispo: From home, likely to remain in the hospital x 1-2 days (5) Acute systolic heart failure: Admission and Anticipated Discharge Date Admission Date: July 07, 2023 Subjective Pt seen in follow up of NSTEMI s/p PCI, DIONTE x2 to RCA Sitting up in bed in NAD, no chest pain or shortness of breath but persistent cough. no sputum production. No fever, chills, no abd. dye, n/v, no dizziness or lightheadedness Pt is a current smoker Review of Systems Review of Systems: All systems reviewed & are unremarkable except as noted in Subjective Physical Exam Physical Exam: General: WD/WN F in NAD Head: Normocephalic, atraumatic ENT: PERRL, EOMI Chest: diminished breath sounds at bases, no wheezes, + basilar crackles, on RA Cardiac: rrr Abdominal: soft, nondistended, nontender to palpation Extremities: Normal inspection, no LE edema, moves extremities Psych: Normal mood and affect Neuro: AAO x 3, speech fluent, no facial asymmetry, moves extremities Results & Data Results & Data Vital Signs (Past 12 Hours) Vital Signs Temp Pulse Pulse Resp BP Pulse Ox O2 Del Method 07/08/23 07:27 71 07/08/23 04:00 37.2 C 77 22 124/72 94 Nasal Cannula 07/08/23 00:00 36.9 C 76 30 H 106/70 91 Room Air O2 Flow Rate 07/08/23 07:27 07/08/23 04:00 1 07/08/23 00:00 Laboratory Results 07/08/23 07/07/23 07/07/23 Range/Units 04:45 16:11 13:20 Activ Coag Time Kaolin (94-140) SECONDS Sodium 131 L (136-145) mmol/L Potassium 3.8 (3.5-5.1) mmol/L Chloride 99 (98-107) mmol/L Carbon Dioxide 23 (21-32) mmol/L Anion Gap 9 (3-11) BUN 14 (6-23) mg/dl Creatinine 0.76 (0.6-1.2) mg/dl Est Cr Clr Drug Dosing 71.2 ml/min Est GFR ( Amer) 106.8 ml/min Est GFR (Non-Af Amer) 92.1 ml/min BUN/Creatinine Ratio 18.4 (10-20) Glucose 92 (70-99(Fasting)) mg/dl Estimat Average Glucose 105 mg/dl Hemoglobin A1c 5.3 (4.5-5.6) % Calcium 8.4 L (8.6-10.3) mg/dl Troponin I High Sens 1765.1 H* D (0-14) pg/ml B-Natriuretic Peptide (0-100) pg/ml Triglycerides 86 (0-150) mg/dl Cholesterol 109 (0-200) mg/dl LDL Cholesterol, Calc 44 mg/dl VLDL Cholesterol, Calc 17 (0-30) mg/dl HDL Cholesterol 48 mg/dl Cholesterol/HDL Ratio 2.3 (0-5) Urine Color Yellow Urine Appearance Clear (Clear) Urine pH 5.0 (4.5-7.5) Ur Specific [place] > 1.045 H (1.000-1.030) Urine Protein Negative (Negative) Urine Glucose (UA) Negative (Negative) Urine Ketones Negative (Negative) Urine Blood Negative (Negative) Urine Nitrite Negative (Negative) Urine Bilirubin Negative (Negative) Urine Urobilinogen Negative (Negative) Ur Leukocyte Esterase Negative (Negative) Nasal Screen MRSA (PCR) Positive A (Negative) Adenovirus (PCR) (NotDetected) B. pertussis DNA (PCR) (NotDetected) B.parapertussis DNA PCR (NotDetected) C. pneumoniae DNA (PCR) (NotDetected) Coronavirus OC43 (PCR) (NotDetected) Coronavirus HKU1 (PCR) (NotDetected) Coronavirus 229E (PCR) (NotDetected) SARS-CoV-2 (PCR) (NotDetected) Coronavirus NL63 (PCR) (NotDetected) Human Metapneumovir PCR (NotDetected) Influenza Type A (PCR) (NotDetected) Influenza Type B (PCR) (NotDetected) M. pneumoniae (PCR) (NotDetected) Parainfluenza 1 (PCR) (NotDetected) Parainfluenza 2 (PCR) (NotDetected) Parainfluenza 3 (PCR) (NotDetected) Parainfluenza 4 (PCR) (NotDetected) RSV (PCR) (NotDetected) Entero/Rhino (PCR) (NotDetected) 07/07/23 07/07/23 07/07/23 Range/Units 12:10 11:44 10:31 Activ Coag Time Kaolin 255 H 239 H (94-140) SECONDS Sodium (136-145) mmol/L Potassium (3.5-5.1) mmol/L Chloride (98-107) mmol/L Carbon Dioxide (21-32) mmol/L Anion Gap (3-11) BUN (6-23) mg/dl Creatinine (0.6-1.2) mg/dl Est Cr Clr Drug Dosing ml/min Est GFR ( Amer) ml/min Est GFR (Non-Af Amer) ml/min BUN/Creatinine Ratio (10-20) Glucose (70-99(Fasting)) mg/dl Estimat Average Glucose mg/dl Hemoglobin A1c (4.5-5.6) % Calcium (8.6-10.3) mg/dl Troponin I High Sens 2581.0 H* D (0-14) pg/ml B-Natriuretic Peptide (0-100) pg/ml Triglycerides (0-150) mg/dl Cholesterol (0-200) mg/dl LDL Cholesterol, Calc mg/dl VLDL Cholesterol, Calc (0-30) mg/dl HDL Cholesterol mg/dl Cholesterol/HDL Ratio (0-5) Urine Color Urine Appearance (Clear) Urine pH (4.5-7.5) Ur Specific [place] (1.000-1.030) Urine Protein (Negative) Urine Glucose (UA) (Negative) Urine Ketones (Negative) Urine Blood (Negative) Urine Nitrite (Negative) Urine Bilirubin (Negative) Urine Urobilinogen (Negative) Ur Leukocyte Esterase (Negative) Nasal Screen MRSA (PCR) (Negative) Adenovirus (PCR) (NotDetected) B. pertussis DNA (PCR) (NotDetected) B.parapertussis DNA PCR (NotDetected) C. pneumoniae DNA (PCR) (NotDetected) Coronavirus OC43 (PCR) (NotDetected) Coronavirus HKU1 (PCR) (NotDetected) Coronavirus 229E (PCR) (NotDetected) SARS-CoV-2 (PCR) (NotDetected) Coronavirus NL63 (PCR) (NotDetected) Human Metapneumovir PCR (NotDetected) Influenza Type A (PCR) (NotDetected) Influenza Type B (PCR) (NotDetected) M. pneumoniae (PCR) (NotDetected) Parainfluenza 1 (PCR) (NotDetected) Parainfluenza 2 (PCR) (NotDetected) Parainfluenza 3 (PCR) (NotDetected) Parainfluenza 4 (PCR) (NotDetected) RSV (PCR) (NotDetected) Entero/Rhino (PCR) (NotDetected) 07/07/23 07/07/23 Range/Units 08:52 08:03 Activ Coag Time Kaolin (94-140) SECONDS Sodium (136-145) mmol/L Potassium (3.5-5.1) mmol/L Chloride (98-107) mmol/L Carbon Dioxide (21-32) mmol/L Anion Gap (3-11) BUN (6-23) mg/dl Creatinine (0.6-1.2) mg/dl Est Cr Clr Drug Dosing ml/min Est GFR ( Amer) ml/min Est GFR (Non-Af Amer) ml/min BUN/Creatinine Ratio (10-20) Glucose (70-99(Fasting)) mg/dl Estimat Average Glucose mg/dl Hemoglobin A1c (4.5-5.6) % Calcium (8.6-10.3) mg/dl Troponin I High Sens 2064.2 H* (0-14) pg/ml B-Natriuretic Peptide 2074 H (0-100) pg/ml Triglycerides (0-150) mg/dl Cholesterol (0-200) mg/dl LDL Cholesterol, Calc mg/dl VLDL Cholesterol, Calc (0-30) mg/dl HDL Cholesterol mg/dl Cholesterol/HDL Ratio (0-5) Urine Color Urine Appearance (Clear) Urine pH (4.5-7.5) Ur Specific [place] (1.000-1.030) Urine Protein (Negative) Urine Glucose (UA) (Negative) Urine Ketones (Negative) Urine Blood (Negative) Urine Nitrite (Negative) Urine Bilirubin (Negative) Urine Urobilinogen (Negative) Ur Leukocyte Esterase (Negative) Nasal Screen MRSA (PCR) (Negative) Adenovirus (PCR) Not Detected (NotDetected) B. pertussis DNA (PCR) Not Detected (NotDetected) B.parapertussis DNA PCR Not Detected (NotDetected) C. pneumoniae DNA (PCR) Not Detected (NotDetected) Coronavirus OC43 (PCR) Not Detected (NotDetected) Coronavirus HKU1 (PCR) Not Detected (NotDetected) Coronavirus 229E (PCR) Not Detected (NotDetected) SARS-CoV-2 (PCR) Not Detected (NotDetected) Coronavirus NL63 (PCR) Not Detected (NotDetected) Human Metapneumovir PCR Not Detected (NotDetected) Influenza Type A (PCR) Not Detected (NotDetected) Influenza Type B (PCR) Not Detected (NotDetected) M. pneumoniae (PCR) Not Detected (NotDetected) Parainfluenza 1 (PCR) Not Detected (NotDetected) Parainfluenza 2 (PCR) Not Detected (NotDetected) Parainfluenza 3 (PCR) Not Detected (NotDetected) Parainfluenza 4 (PCR) Not Detected (NotDetected) RSV (PCR) Not Detected (NotDetected) Entero/Rhino (PCR) Not Detected (NotDetected)
[2023-07-08] MEDS: lisinopril 40 MG TAB PO SCH (09:05)
[2023-07-08] MEDS: METOPROLOL SUCC 25MG EXT REL TAB PO SCH (09:05)
[2023-07-08] MEDS: BENZONATATE 100 MG CAPSULE PO SCH (09:06)
--- NOTE | 2023-07-08 11:31 | Pulmonary Consultation ---
Date of Consultation July 08, 2023 Assessment & Plan (1) Tobacco use: (2) Chronic cough: (3) Upper airway cough syndrome: (4) GERD (gastroesophageal reflux disease): (5) Acute systolic heart failure: (6) Pulmonary hypertension: Plan CT chest 07/07/2023 personally reviewed: Centrilobular emphysema appreciated bilaterally especially in the apices Interlobular thickening appreciated in the upper lobes as well as bilateral lower lobes Calcified granuloma in the left lower lobe Minimal pleural effusion appreciated bilaterally No significant mediastinal lymphadenopathy 2D echo 07/07/2023: EF 35-40%, grade 2 diastolic dysfunction, RVSP 40-50 mmHg -- Chronic cough Multifactorial Chronic bronchitis definitely playing a role but the cough is usually early in the morning. 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 Will give the patient pantoprazole to be used 30 minutes before dinner as her symptoms of cough are worse at night. Does have significant smoking history. Will start the patient on Incruse to be used on a daily basis Incentive spirometry will be beneficial Please note the above document was generated using voice recognition software. It may contain grammatical, syntax or spelling errors.Any formal questions or concerns about the content, text or information contained within the body of this dictation should be directly addressed to the provider for clarification. History of Present Illness Attending Physician: Handy Razo MD History of Present Illness 48-year-old female present to the hospital with complaints of chest pain and shortness of breath Past medical history: Active smoker, dyslipidemia Pulmonary consulted for cough At the time of examination patient was resting comfortably, she was saturating 96-97% on room air. Heart rate was in the 60s She stated that she is feeling much better since he came to the hospital and had a stent placed in. She does complain of cough especially early in the morning which has been going on for years. Lately she has been complaining of cough at night which is mostly dry. She does feel that she has phlegm but she is not able to bring it up. Current denies any hemoptysis. Denies any heartburn-like symptoms but she does take Pepcid on an as-needed basis at home. No night sweats, no unintentional weight loss. No headache, no blurry vision No fever or chills. Social history: Approximately 50-[id number]-dcmv smoking history, currently smoking half a pack a day. 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 No pets at home History of asthma in sister when she was a child History of lung cancer in father was a smoker Allergies Allergy/AdvReac Type Severity Reaction Status Date / Time Penicillins Allergy Severe Throat Unverified 07/07/23 10:14 Swelling Home Medications Medication Instructions Recorded Confirmed Type dihydroxyaluminum sodium carb 334 334 mg PO DAILY PRN Acid Reflux 07/07/23 07/07/23 History mg chewable tablet lisinopril 40 mg tablet 40 mg PO QAM 07/07/23 07/07/23 History Patient History Medical History HTN (hypertension) Intra-abdominal bleeding From ruptured ovarian cyst Hx of ovarian cyst Family History Father Heart disease Hypertension Myocardial infarction Brother Heart disease Social History Smoking Status: Current every day smoker Tobacco Type: Cigarettes Cigarettes Per Day: 10; Second Hand Exposure: No; Do You Dip or Chew Tobacco: No; Hx Alcohol Use: Yes Alcohol type: beer Hx Substance Use: No Preferred Language: Greenlandic Communication Ability: Effective Law Enforcement Officer Required: No Beliefs That Will Affect Care: None Current Living Situation: Alone Feels Safe at Home: Yes Assistive Devices: Denture - Upper, Denture - Lower and Glasses Review of Systems 2 Review of Systems: All systems reviewed & are unremarkable except as noted in HPI & below Physical Exam 2 Physical Exam: Constitutional: No acute distress HEENT: EOMI, PERRLA Respiratory system: Decreased air entry bilaterally, no wheeze, no rhonchi, mild crackles bilaterally CVS: S1-S2 positive, no murmurs or gallops Abdomen: Soft, nontender, nondistended, positive bowel sounds x4 Extremities: +2 pulses bilaterally radialis/ dorsalis pedis, no cyanosis, no edema Neuro: Awake alert oriented x3 Psych: Normal mood and affect G/U: No [place] Skin: no rashes, warm and dry Lymphatic: no cervical or axillary lymphadenopathy Results & Data Results & Data Vital Signs (Past 12 Hours) Vital Signs Temp Pulse Pulse Resp BP Pulse Ox O2 Del Method 07/08/23 11:16 37.0 C 65 19 107/65 96 Room Air 07/08/23 08:07 36.8 C 75 23 115/70 97 Room Air 07/08/23 08:00 Room Air 07/08/23 08:00 71 07/08/23 07:27 71 07/08/23 04:00 37.2 C 77 22 124/72 94 Nasal Cannula 07/08/23 00:00 36.9 C 76 30 H 106/70 91 Room Air O2 Flow Rate 07/08/23 11:16 07/08/23 08:07 07/08/23 08:00 07/08/23 08:00 07/08/23 07:27 07/08/23 04:00 1 07/08/23 00:00 Laboratory Results 07/07/23 08:03 07/08/23 04:45 PG Care Time/CCT Total # of Minutes Spent Total Time Spent with Patient: Total time spent is greater than 50% in coordination of care (as documented) at patient's floor/unit and/or counseling patient: Coding Level of Care Code 72935 INT INP/OBS CARE 3/75MIN Diagnoses Tobacco use Z72.0 Chronic cough R05.3 Upper airway cough syndrome R05.8 GERD (gastroesophageal reflux disease) K21.9 Acute systolic heart failure I50.21 Pulmonary hypertension I27.20
--- NOTE | 2023-07-08 11:38 | Cardiology Progress Note ---
Date of Service July 08, 2023 Assessment & Plan (1) ACS (acute coronary syndrome): (2) Pulmonary edema: (3) HTN (hypertension): Plan 48-year-old female with cardiovascular risk factors of hypertension, family history, chronic tobacco use presents with now approximately 10 hours post initial onset of chest pain with associated signs and symptoms of pulmonary edema, respiratory distress. Troponin elevated greater than 2000, echocardiogram suggestive of multivessel coronary disease with marked hypokinesis inferior posterior wall, hypokinesis septum and anterior wall Plan: Continue IV heparin Patient with marginal hemodynamics with tachycardic and borderline hyp otension Patient to go immediately to cardiac catheterization for coronary angiography for coronary definition and treatment as indicated, critically ill 07/08/2023. Patient clinically improved but still with persistent cough. Concerns of ACS precipitated by acute tracheobronchitis and worsened with acute pulmonary edema from wall motion abnormality. Clinically improving. Tolerating beta-annabelle but still with productive cough pulmonology consulted and appreciate intervention Will change lisinopril to losartan Continue beta-annabelle antiplatelet therapy given transient atrial tachycardia this more and lipid-lowering therapy Increase activity Admission and Anticipated Discharge Date Admission Date: July 07, 2023 Subjective Patient was seen and examined, chart, medications, telemetry reviewed Still with nonproductive cough mild wheezing. No physical examination volume overload currently. Feels substantially improved from day prior. Review of Systems Review of Systems: All systems reviewed & are unremarkable except as noted in Subjective Physical Exam Constitutional: + thin; no acute distress Eyes: PERRL, conjunctivae normal, anicteric sclerae ENMT: external ear and nose normal, oropharynx normal Neck: trachea midline, no thyromegaly Respiratory: Auscultation: + rales and + bronchovesicular breath sounds (Right base) Cardiovascular: Rate/Rhythm: regular rate and regular rhythm Heart Sounds: no murmur Vessels: + JVD, femoral pulses present and radial pulses present Extremities: + edema (Trace) Gastrointestinal (Abdomen): normal bowel sounds, soft, nontender, no hepatosplenomegaly Musculoskeletal: no cyanosis or clubbing, extremities motor strength 5/5 Skin: no rashes, warm and dry Neurologic: PERRL, EOMI, accommodation nl, no face palsy, no dysarthria Results & Data Vital Signs (Past 12 Hours) Vital Signs Temp Pulse Pulse Resp BP Pulse Ox O2 Del Method 07/08/23 11:16 37.0 C 65 19 107/65 96 Room Air 07/08/23 08:07 36.8 C 75 23 115/70 97 Room Air 07/08/23 08:00 Room Air 07/08/23 08:00 71 07/08/23 07:27 71 07/08/23 04:00 37.2 C 77 22 124/72 94 Nasal Cannula 07/08/23 00:00 36.9 C 76 30 H 106/70 91 Room Air O2 Flow Rate 07/08/23 11:16 07/08/23 08:07 07/08/23 08:00 07/08/23 08:00 07/08/23 07:27 07/08/23 04:00 1 07/08/23 00:00 Laboratory Results Laboratory Results - last 24 hr 07/07/23 07/07/23 07/07/23 11:44 12:10 13:20 Activ Coag Time Kaolin 239 H 255 H Sodium Potassium Chloride Carbon Dioxide Anion Gap BUN Creatinine Est Cr Clr Drug Dosing Est GFR ( Amer) Est GFR (Non-Af Amer) BUN/Creatinine Ratio Glucose Estimat Average Glucose Hemoglobin A1c Calcium Magnesium Troponin I High Sens Triglycerides Cholesterol LDL Cholesterol, Calc VLDL Cholesterol, Calc HDL Cholesterol Cholesterol/HDL Ratio Urine Color Yellow Urine Appearance Clear Urine pH 5.0 Ur Specific [place] > 1.045 H Urine Protein Negative Urine Glucose (UA) Negative Urine Ketones Negative Urine Blood Negative Urine Nitrite Negative Urine Bilirubin Negative Urine Urobilinogen Negative Ur Leukocyte Esterase Negative Nasal Screen MRSA (PCR) Positive A 07/07/23 07/08/23 16:11 04:45 Activ Coag Time [place]olin Sodium 131 L Potassium 3.8 Chloride 99 Carbon Dioxide 23 Anion Gap 9 BUN 14 Creatinine 0.76 Est Cr Clr Drug Dosing 71.2 Est GFR ( Amer) 106.8 Est GFR (Non-Af Amer) 92.1 BUN/Creatinine Ratio 18.4 Glucose 92 Estimat Average Glucose 105 Hemoglobin A1c 5.3 Calcium 8.4 L Magnesium 2.0 Troponin I High Sens 1765.1 H* D Triglycerides 86 Cholesterol 109 LDL Cholesterol, Calc 44 VLDL Cholesterol, Calc 17 HDL Cholesterol 48 Cholesterol/HDL Ratio 2.3 Urine Color Urine Appearance Urine pH Ur Specific [place] Urine Protein Urine Glucose (UA) Urine Ketones Urine Blood Urine Nitrite Urine Bilirubin Urine Urobilinogen Ur Leukocyte Esterase Nasal Screen MRSA (PCR)
[2023-07-08] MEDS: UMECLIDINIUM BROMIDE 62.5MCG/BLISTER 7 PUFFS/INHALER INH SCH (12:01)
[2023-07-08] MEDS: NICOTINE 7 MG/24 HR TDSY TD SCH (12:46)
--- NOTE | 2023-07-08 15:59 | Electrocardiogram Report ---
Test Reason : Blood Pressure : / mmHG Vent. Rate : 081 BPM Atrial Rate : 081 BPM P-R Int : 194 ms QRS Dur : 124 ms QT Int : 424 ms P-R-T Axes : 000 077 119 degrees QTc Int : 492 ms Age and gender specific ECG analysis Normal sinus rhythm Nonspecific ST abnormality Abnormal ECG When compared with ECG of 07-JUL-2023 07:55, No significant change Confirmed by Adonis Linares ([id number]) on 07/08/2023 3:59:39 PM Referred By: REFERRED SELF Confirmed By:Adonis Linares
[2023-07-08] MEDS: PANTOprazole 40 MG TAB PO SCH (16:17)
--- NOTE | 2023-07-08 16:20 | Electrocardiogram Report ---
Test Reason : Blood Pressure : / mmHG Vent. Rate : 066 BPM Atrial Rate : 066 BPM P-R Int : 134 ms QRS Dur : 080 ms QT Int : 512 ms P-R-T Axes : 060 071 089 degrees QTc Int : 536 ms Poor data quality, interpretation may be adversely affected Normal sinus rhythm Nonspecific ST abnormality Prolonged QT Abnormal ECG When compared with ECG of 07-JUL-2023 12:25, (unconfirmed) QRS duration has decreased Criteria for Anterior infarct are no longer Present Criteria for Anterolateral infarct are no longer Present ST elevation has replaced ST depression in Inferior leads ST no longer depressed in Lateral leads Confirmed by Adonis Linares ([id number]) on 07/08/2023 4:20:13 PM Referred By: REFERRED SELF Confirmed By:Adonis Linares
[2023-07-09] MEDS ORDERED: LEVALBUTEROL 1.25MG/0.5ML NEB NEB PRN (06:33)
[2023-07-09] MEDS: guaiFENesin/CODEINE 100MG/10MG 5ML UDC PO PRN (06:46)
[2023-07-09] MEDS: LEVALBUTEROL 1.25 MG/3 ML NEB ONE (07:04)
[2023-07-09 07:33] LABS: Hematocrit (blood only) 37.4 % (37.0-47.0); Hemoglobin 12.8 g/dl (12.0-16.0); Mean Corpuscular Hemoglobin 30.5 pg (25.0-34.0); Mean Corpuscular Hgb Conc 34.2 g/dL (32.0-36.0); Mean Platelet Volume 10.2 fL (9.4-12.4); Platelet Count 157 K/uL (130-400); RDW Coefficient of Variation 13.2 % (11.5-14.5); RDW Standard Deviation 42.8 fL (36.4-46.3)
--- NOTE | 2023-07-09 07:59 | Pulmonology Progress Note ---
Date of Service July 09, 2023 Assessment & Plan (1) Tobacco use: (2) Chronic cough: (3) Upper airway cough syndrome: (4) GERD (gastroesophageal reflux disease): (5) Acute systolic heart failure: (6) Pulmonary hypertension: Plan CT chest 07/07/2023 personally reviewed: Centrilobular emphysema appreciated bilaterally especially in the apices Interlobular thickening appreciated in the upper lobes as well as bilateral lower lobes Calcified granuloma in the left lower lobe Minimal pleural effusion appreciated bilaterally No significant mediastinal lymphadenopathy 2D echo 07/07/2023: EF 35-40%, grade 2 diastolic dysfunction, RVSP 40-50 mmHg -- Chronic cough Multifactorial Chronic bronchitis definitely playing a role but the cough is usually early in the morning. 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 I will add Flonase nasal spray as well as cetirizine to be used on a daily basis Would still recommend to continue with pantoprazole 30 minutes before dinner. Can consider increasing it to twice daily for 10 days She is wheezing today. I will give 20 mg of Solu-Medrol. Would recommend to continue with Incruse inhaler or Spiriva inhaler even on discharge Incentive spirometry will be beneficial Please note the above document was generated using voice recognition software. It may contain grammatical, syntax or spelling errors.Any formal questions or concerns about the content, text or information contained within the body of this dictation should be directly addressed to the provider for clarification. Admission and Anticipated Discharge Date Admission Date: July 07, 2023 Subjective Patient seen and examined at bedside. No acute distress, no adverse events overnight She still complains of cough at night. Does complain of some chest tightness. She did use pantoprazole yesterday as well as Incruse inhaler. She was saturating well on room air. Was asking if she could go home. Review of Systems 2 Review of Systems: All systems reviewed & are unremarkable except as noted in Subjective Physical Exam 2 Physical Exam: Constitutional: No acute distress HEENT: EOMI, PERRLA Respiratory system: Decreased air entry bilaterally, minimal expiratory wheeze bilaterally, no rhonchi, mild crackles bilaterally CVS: S1-S2 positive, no murmurs or gallops Abdomen: Soft, nontender, nondistended, positive bowel sounds x4 Extremities: +2 pulses bilaterally radialis/ dorsalis pedis, no cyanosis, no edema Neuro: Awake alert oriented x3 Psych: Normal mood and affect G/U: No [place] Skin: no rashes, warm and dry Lymphatic: no cervical or axillary lymphadenopathy Results & Data Results & Data Vital Signs (Past 12 Hours) Vital Signs Temp Pulse Pulse Resp BP Pulse Ox O2 Del Method 07/09/23 07:44 36.7 C 68 20 120/76 95 Room Air 07/09/23 07:07 68 07/09/23 07:04 63 18 93 Room Air 07/09/23 06:15 72 22 126/84 98 Room Air 07/09/23 03:26 36.6 C 71 18 109/66 92 Room Air 07/08/23 23:25 36.8 C 70 18 107/67 93 Room Air 07/08/23 22:49 68 07/08/23 21:37 66 07/08/23 21:00 Room Air 07/08/23 21:00 37.2 C 69 18 108/66 95 Room Air 07/08/23 20:00 Room Air Laboratory Results 07/09/23 06:51 PG Care Time/CCT Total # of Minutes Spent Total Time Spent with Patient: Total time spent is greater than 50% in coordination of care (as documented) at patient's floor/unit and/or counseling patient: Coding Level of Care Code 64586 SUB INP/OBS CARE 3/50MIN Diagnoses Tobacco use Z72.0 Chronic cough R05.3 Upper airway cough syndrome R05.8 GERD (gastroesophageal reflux disease) K21.9 Acute systolic heart failure I50.21 Pulmonary hypertension I27.20
[2023-07-09 08:02] LABS: BUN Creatinine Ratio 14.1 (10-20); Calcium 8.5 mg/dl (8.6-10.3); Est GFR (African American) 115.9 ml/min; Magnesium 1.9 mg/dl (1.7-2.4); Potassium 3.7 mmol/L (3.5-5.1)
[2023-07-09] MEDS ORDERED: methylPREDNISolone 125 MG/2 ML VIAL IV STA (09:58)
[2023-07-09] MEDS: LOSARTAN POTASSIUM 50 MG TAB PO SCH (09:58)
[2023-07-09] MEDS: FLUTICASONE PROPIONATE NA SPR 16 GM BTL SCH (10:45)
[2023-07-09] MEDS: CETIRIZINE HCL 10 MG TABLET PO SCH (10:46)
[2023-07-09] MEDS: methylPREDNISolone 20 MG in SYRINGE 0 ML IV ONE (10:46)
--- NOTE | 2023-07-09 15:44 | Cardiology Progress Note ---
Date of Service July 09, 2023 Assessment & Plan (1) ACS (acute coronary syndrome): (2) Pulmonary edema: (3) HTN (hypertension): Plan 48-year-old female with cardiovascular risk factors of hypertension, family history, chronic tobacco use presents with now approximately 10 hours post initial onset of chest pain with associated signs and symptoms of pulmonary edema, respiratory distress. Troponin elevated greater than 2000, echocardiogram suggestive of multivessel coronary disease with marked hypokinesis inferior posterior wall, hypokinesis septum and anterior wall Plan: Continue IV heparin Patient with marginal hemodynamics with tachycardic and borderline hyp otension Patient to go immediately to cardiac catheterization for coronary angiography for coronary definition and treatment as indicated, critically ill 07/08/2023. Patient clinically improved but still with persistent cough. Concerns of ACS precipitated by acute tracheobronchitis and worsened with acute pulmonary edema from wall motion abnormality. Clinically improving. Tolerating beta-annabelle but still with productive cough pulmonology consulted and appreciate intervention Will change lisinopril to losartan Continue beta-annabelle antiplatelet therapy given transient atrial tachycardia this more and lipid-lowering therapy Increase activity 07/09/2023 2 days status post presentation with acute coronary syndrome clinically improving but with transient pause on telemetry this morning, QT prolongation on EKG Will resume beta-annabelle with metoprolol succinate 12.5 mg this evening once daily Repeat EKG in a.m., maintain telemetry Repeat CBC with differential in a.m. Continue aspirin clopidogrel and losartan. Might ultimately require low-dose diuretic Admission and Anticipated Discharge Date Admission Date: July 07, 2023 Subjective Patient was seen and examined, chart, medications, telemetry reviewed. Continues to demonstrate clinical improvement though still with cough Telemetry today with brief 3-second pauses after transient slowing approximately 6 AM this morning in association with possible bowel movement Asymptomatic no dizziness or lightheadedness. Review of Systems Review of Systems: All systems reviewed & are unremarkable except as noted in Subjective Physical Exam Constitutional: + thin; no acute distress Eyes: PERRL, conjunctivae normal, anicteric sclerae ENMT: external ear and nose normal, oropharynx normal Neck: trachea midline, no thyromegaly Respiratory: Auscultation: + bronchovesicular breath sounds (Right base) Cardiovascular: Rate/Rhythm: regular rate and regular rhythm Heart Sounds: no murmur Vessels: + JVD, femoral pulses present and radial pulses present Gastrointestinal (Abdomen): normal bowel sounds, soft, nontender, no hepatosplenomegaly Musculoskeletal: no cyanosis or clubbing, extremities motor strength 5/5 Skin: no rashes, warm and dry Neurologic: PERRL, EOMI, accommodation nl, no face palsy, no dysarthria Results & Data Vital Signs (Past 12 Hours) Vital Signs Temp Pulse Pulse Resp BP Pulse Ox O2 Del Method 07/09/23 15:27 36.6 C 65 16 112/68 94 Room Air 07/09/23 10:48 36.7 C 65 18 115/68 94 Room Air 07/09/23 07:44 36.7 C 68 20 120/76 95 Room Air 07/09/23 07:07 68 07/09/23 07:04 63 18 93 Room Air 07/09/23 06:15 72 22 126/84 98 Room Air Laboratory Results Laboratory Results - last 24 hr 07/09/23 06:51 WBC 2.10 L RBC 4.20 Hgb 12.8 Hct 37.4 MCV 89.0 MCH 30.5 MCHC 34.2 RDW Std Deviation 42.8 RDW Coeff of Anju 13.2 Plt Count 157 MPV 10.2 Sodium 131 L Potassium 3.7 Chloride 102 Carbon Dioxide 21 Anion Gap 8 BUN 10 Creatinine 0.71 Est Cr Clr Drug Dosing 75.0 Est GFR ( Amer) 115.9 Est GFR (Non-Af Amer) 100.0 BUN/Creatinine Ratio 14.1 Glucose 124 H Calcium 8.5 L Magnesium 1.9
[2023-07-09] MEDS ORDERED: METOPROLOL SUCC 25MG EXT REL TAB PO SCH (21:00)
[2023-07-09] MEDS: MELATONIN 3 MG TAB PO PRN (21:05)
[2023-07-10 07:18] LABS: Hematocrit (blood only) 38.9 % (37.0-47.0); Hemoglobin 13.2 g/dl (12.0-16.0); Mean Corpuscular Hemoglobin 30.6 pg (25.0-34.0); Mean Corpuscular Hgb Conc 33.9 g/dL (32.0-36.0); Mean Corpuscular Volume 90.3 fL (80.0-100.0); Mean Platelet Volume 10.4 fL (9.4-12.4); Platelet Count 175 K/uL (130-400); Red Blood Count 4.31 M/uL (4.20-5.40); White Blood Count 2.73 K/ul (4.8-10.8)
--- NOTE | 2023-07-10 07:29 | Pulmonology Progress Note ---
Date of Service July 10, 2023 Assessment & Plan (1) Tobacco use: (2) Chronic cough: (3) Upper airway cough syndrome: (4) GERD (gastroesophageal reflux disease): (5) Acute systolic heart failure: (6) Pulmonary hypertension: Plan CT chest 07/07/2023 personally reviewed: Centrilobular emphysema appreciated bilaterally especially in the apices Interlobular thickening appreciated in the upper lobes as well as bilateral lower lobes Calcified granuloma in the left lower lobe Minimal pleural effusion appreciated bilaterally No significant mediastinal lymphadenopathy 2D echo 07/07/2023: EF 35-40%, grade 2 diastolic dysfunction, RVSP 40-50 mmHg -- Chronic cough Multifactorial Chronic bronchitis definitely playing a role but the cough is usually early in the morning. 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 Would recommend to take them on an as-needed basis even on discharge Would recommend to continue with Incruse inhaler or Spiriva inhaler even on discharge Incentive spirometry will be beneficial Case discussed with Dr. Razo No further recommendation from pulmonary perspective, will sign off Please call directly with any questions Please note the above document was generated using voice recognition software. It may contain grammatical, syntax or spelling errors.Any formal questions or concerns about the content, text or information contained within the body of this dictation should be directly addressed to the provider for clarification. Admission and Anticipated Discharge Date Admission Date: July 07, 2023 Subjective Patient seen and examined at bedside. No acute distress, notable symptoms overnight. Patient states that she is feeling better She had a good night sleep. Denied any cough overnight. No chest pain, chest tightness. Fair appetite, no nausea vomiting Is asking when she can go home Review of Systems 2 Review of Systems: All systems reviewed & are unremarkable except as noted in Subjective Physical Exam 2 Physical Exam: Constitutional: No acute distress HEENT: EOMI, PERRLA Respiratory system: Decreased air entry bilaterally, no wheeze, no rhonchi, no crackles CVS: S1-S2 positive, no murmurs or gallops Abdomen: Soft, nontender, nondistended, positive bowel sounds x4 Extremities: +2 pulses bilaterally radialis/ dorsalis pedis, no cyanosis, no edema Neuro: Awake alert oriented x3 Psych: Normal mood and affect G/U: No [place] Skin: no rashes, warm and dry Lymphatic: no cervical or axillary lymphadenopathy Results & Data Results & Data Vital Signs (Past 12 Hours) Vital Signs Temp Pulse Pulse Resp BP Pulse Ox O2 Del Method 07/10/23 02:52 36.6 C 78 18 118/74 96 Room Air 07/09/23 22:25 36.7 C 67 18 103/63 92 Room Air 07/09/23 22:00 69 Laboratory Results 07/10/23 06:44 07/09/23 06:51 PG Care Time/CCT Total # of Minutes Spent Total Time Spent with Patient: Total time spent is greater than 50% in coordination of care (as documented) at patient's floor/unit and/or counseling patient: Coding Level of Care Code 15287 SUB INP/OBS CARE 2/35MIN Diagnoses Tobacco use Z72.0 Chronic cough R05.3 Upper airway cough syndrome R05.8 GERD (gastroesophageal reflux disease) K21.9 Acute systolic heart failure I50.21 Pulmonary hypertension I27.20
[2023-07-10 08:42] LABS: Basophils # (auto) 0.01 K/uL (0.00-0.20); Basophils % (auto) 0.4 %; Eosinophils # (auto) 0.02 K/uL (0.00-0.50); Eosinophils % (auto) 0.7 %; Immature Granulocytes # (auto) 0.01 K/uL (0.01-0.20); Immature Granulocytes % (auto) 0.4 %; Lymphocytes # (auto) 1.19 K/uL (1.20-3.40); Lymphocytes % (auto) 43.6 %; Monocytes # (auto) 0.58 K/uL (0.11-0.59); Monocytes % (auto) 21.2 %; Neutrophils # (auto) 0.92 K/uL (1.40-6.50); Neutrophils % (auto) 33.7 %
--- NOTE | 2023-07-10 09:04 | Hospitalist Progress Note ---
Date of Service July 09, 2023 (late entry) Assessment & Plan (1) NSTEMI (non-ST elevated myocardial infarction): (2) Tobacco use: (3) Pleural effusion: (4) HTN (hypertension): Plan: NSTEMI HTN Tobacco Use Pleural Effusion - EKG reviewed as above showing ST wave depressions in lateral and inferior leads. - Trended cardiac biomarkers, initial set was 2063, trend until peaks and then one more, Q6H - Pt w/ nausea and vomiting on admission, provided antiemetic - BNP 2073m s/p lasix IV, inserted perera cath for strict I/Os, large pleural effusions seen on imaging likely a result of the above. - Pain control with dilaudid Iv prn as this helped her - Given full dose asa and started on heparin gtt, continue - Cessation of tobacco encouraged at bedside, no nicotine patch at this time. - Echo -LV is normal in size. Normal LV wall thickness. Inferior wall and posterior wall are severely hypokinetic at the base and mid level. Anterior wall and inferior and anterior septum are hypokinetic. EF 35 to 40%. Diastolic dysfunction, grade 2, consistent with congestive heart failure. LA is mildly dilated. Mild to moderate mitral regurg. There is trace tricuspid regurg. RV systolic pressure is elevated at 40 to 50 mmHg. 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 Severe single vessel coronary artery disease --80% proximal RPDA No significant nonculprit coronary artery disease 2. Borderline intracardiac filling pressure 3. Successful PCI of proximal RPDA with 2 overlapping DIONTE (2.0 x 8, 2.25 x 12 mm [place]). Plan: Loaded with clopidogrel 600 mg in [place] Continue dual-antiplatelet therapy for at least 1 year Changed lisinopril to losartan Continue beta-annabelle antiplatelet therapy and lipid-lowering therapy Pulmonary medicine consulted - Mucinex-DM to be used on as-needed basis along with flutter valve for chronic bronchitis, Start Incruse to be used on daily basis. IS. Giving iv 20 solumedrol today for mild wheezing. Dispo: From home, likely to remain in the hospital x 1-2 days (5) Acute systolic heart failure: Admission and Anticipated Discharge Date Admission Date: July 07, 2023 Subjective Pt seen in follow up of NSTEMI s/p PCI, DIONTE x2 to RCA Sitting up in bed in NAD, no chest pain or shortness of breath but persistent cough. no sputum production. No fever, chills, no abd. dye, n/v, no dizziness or lightheadedness Pt is a current smoker 3 sec pause reported - discussed w/ cardiology Pulm. also following- 20 iv solumderol given for wheezing Review of Systems Review of Systems: All systems reviewed & are unremarkable except as noted in Subjective Physical Exam Physical Exam: General: WD/WN F in NAD Head: Normocephalic, atraumatic ENT: PERRL, EOMI Chest: diminished breath sounds at bases, + mild wheezes, + basilar crackles, on RA Cardiac: rrr Abdominal: soft, nondistended, nontender to palpation Extremities: Normal inspection, no LE edema, moves extremities Psych: Normal mood and affect Neuro: AAO x 3, speech fluent, no facial asymmetry, moves extremities Results & Data Results & Data Vital Signs (Past 12 Hours) Vital Signs Temp Pulse Pulse Resp BP Pulse Ox O2 Del Method 07/09/23 22:25 36.7 C 67 18 103/63 92 Room Air 07/09/23 22:00 69
--- NOTE | 2023-07-10 09:20 | Hospitalist Progress Note ---
Date of Service July 10, 2023 Assessment & Plan (1) NSTEMI (non-ST elevated myocardial infarction): (2) Tobacco use: (3) Pleural effusion: (4) HTN (hypertension): Plan: NSTEMI HTN Tobacco Use Pleural Effusion - EKG reviewed as above showing ST wave depressions in lateral and inferior leads. - Trended cardiac biomarkers, initial set was 2063, trend until peaks and then one more, Q6H - Pt w/ nausea and vomiting on admission, provided antiemetic - BNP 2073m s/p lasix IV, inserted perera cath for strict I/Os, large pleural effusions seen on imaging likely a result of the above. - Pain control with dilaudid Iv prn as this helped her - Given full dose asa and started on heparin gtt, continue - Cessation of tobacco encouraged at bedside, no nicotine patch at this time. - Echo -LV is normal in size. Normal LV wall thickness. Inferior wall and posterior wall are severely hypokinetic at the base and mid level. Anterior wall and inferior and anterior septum are hypokinetic. EF 35 to 40%. Diastolic dysfunction, grade 2, consistent with congestive heart failure. LA is mildly dilated. Mild to moderate mitral regurg. There is trace tricuspid regurg. RV systolic pressure is elevated at 40 to 50 mmHg. - Cardiology consulted - discussed with Dr. Waite -> labor custodian Summary: 1. Severe single vessel coronary artery disease --80% proximal RPDA No significant nonculprit coronary artery disease 2. Borderline intracardiac filling pressure 3. Successful PCI of proximal RPDA with 2 overlapping DIONTE (2.0 x 8, 2.25 x 12 mm Joseph). 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 IS. Dispo: plan to DC home (5) Acute systolic heart failure: Admission and Anticipated Discharge Date Admission Date: July 07, 2023 Subjective Pt seen in follow up of NSTEMI s/p PCI, DIONTE x2 to RCA Sitting up in bed in NAD, no chest pain or shortness of breath. Cough much improved and pt says she was able to sleep overnight. No fever, chills, no abd. dye, n/v, no dizziness or lightheadedness Pt is a current smoker Cardiology and pulm. following - and discussed with - plan to discharge home Review of Systems Review of Systems: All systems reviewed & are unremarkable except as noted in Subjective Physical Exam Physical Exam: General: WD/WN F in NAD Head: Normocephalic, atraumatic ENT: PERRL, EOMI Chest: decreased air entry b/l, on RA Cardiac: rrr Abdominal: soft, nondistended, nontender to palpation Extremities: Normal inspection, no LE edema, moves extremities Psych: Normal mood and affect Neuro: AAO x 3, speech fluent, no facial asymmetry, moves extremities Results & Data Results & Data Vital Signs (Past 12 Hours) Vital Signs Temp Pulse Pulse Resp BP Pulse Ox O2 Del Method 07/10/23 07:53 36.4 C L 60 18 131/71 97 Room Air 07/10/23 02:52 36.6 C 78 18 118/74 96 Room Air 07/09/23 22:25 36.7 C 67 18 103/63 92 Room Air 07/09/23 22:00 69 Laboratory Results 07/10/23 07/10/23 Range/Units 09:52 06:44 WBC 3.09 L 2.73 L (4.8-10.8) K/ul RBC 4.01 L 4.31 (4.20-5.40) M/uL Hgb 12.3 13.2 (12.0-16.0) g/dl Hct 36.2 L 38.9 (37.0-47.0) % MCV 90.3 90.3 (80.0-100.0) fL MCH 30.7 30.6 (25.0-34.0) pg MCHC 34.0 33.9 (32.0-36.0) g/dL RDW Std Deviation 43.7 43.0 (36.4-46.3) fL RDW Coeff of Anju 13.2 13.0 (11.5-14.5) % Plt Count 166 175 (130-400) K/uL MPV 10.0 10.4 (9.4-12.4) fL Immature Gran % (Auto) 0.0 0.4 % Neut % (Auto) 34.9 33.7 % Lymph % (Auto) 43.4 43.6 % [place] % (Auto) 20.4 21.2 % Eos % (Auto) 1.0 0.7 % Baso % (Auto) 0.3 0.4 % Neut # (Auto) 1.08 L 0.92 L* (1.40-6.50) K/uL Lymph # (Auto) 1.34 1.19 L (1.20-3.40) K/uL [place] # (Auto) 0.63 H 0.58 (0.11-0.59) K/uL Eos # (Auto) 0.03 0.02 (0.00-0.50) K/uL Baso # (Auto) 0.01 0.01 (0.00-0.20) K/uL Immature Gran # (Auto) 0.00 L 0.01 (0.01-0.20) K/uL Sodium 133 L (136-145) mmol/L Potassium 3.8 (3.5-5.1) mmol/L Chloride 105 (98-107) mmol/L Carbon Dioxide 21 (21-32) mmol/L Anion Gap 7 (3-11) BUN 13 (6-23) mg/dl Creatinine 0.67 (0.6-1.2) mg/dl Est Cr Clr Drug Dosing 79.9 ml/min Est GFR ( Amer) 119.6 ml/min Est GFR (Non-Af Amer) 103.2 ml/min BUN/Creatinine Ratio 19.4 (10-20) Glucose 111 H (70-99(Fasting)) mg/dl Calcium 8.3 L (8.6-10.3) mg/dl Phosphorus 3.1 (2.5-4.9) mg/dl Magnesium 1.9 (1.7-2.4) mg/dl Medications Administered Current Inpatient Medications Acetaminophen (Acetaminophen 325 Mg Tab) 650 mg PO Q4H PRN PRN Reason: Moderate Pain (Scale 4, 5, 6) Stop: 08/06/23 13:43 Last Admin: 07/08/23 19:59 Dose: 650 mg Aspirin (Aspirin 81 Mg Ectab) 81 mg PO [facility] Stop: 08/07/23 08:59 Last Admin: 07/09/23 10:00 Dose: 81 mg Atorvastatin Calcium (Atorvastatin 40 Mg Tab) [facility] Stop: 08/06/23 13:43 Last Admin: 07/09/23 09:59 Dose: 80 mg Benzonatate (Benzonatate 100 Mg Capsule) 100 mg PO TID [facility] Stop: 08/07/23 08:59 Last Admin: 07/10/23 09:13 Dose: 100 mg Cetirizine HCl (Cetirizine Hcl 10 Mg Tablet) [facility] [place] Stop: 08/08/23 09:59 Last Admin: 07/09/23 10:46 Dose: 10 mg Clopidogrel Bisulfate (Clopidogrel Bisulfate 75 Mg Tab) 75 [facility] [place] Stop: 08/07/23 08:59 Last Admin: 07/09/23 09:59 Dose: 75 mg Fluticasone Propionate (Fluticasone Propionate Na Spr 16 Gm Btl) 2 sprays NA BID [facility] Stop: 08/08/23 09:59 Last Admin: 07/10/23 09:13 Dose: 2 sprays Guaifenesin/Codeine Phosphate (Guaifenesin/Codeine 100mg/10mg 5ml Udc) 5 ml PO Q6H PRN PRN Reason: Cough Stop: 08/08/23 06:32 Last Admin: 07/09/23 21:08 Dose: 5 ml Levalbuterol HCl (Levalbuterol 1.25mg/0.5ml Neb) 1.25 mg NEB Q4H PRN; Protocol PRN Reason: Shortness Of Breath Or Wheezing Stop: 08/08/23 06:32 Losartan Potassium (Losartan Potassium 50 Mg Tab) 50 [facility] [place] Stop: 08/08/23 08:59 Last Admin: 07/09/23 09:58 Dose: 50 mg Melatonin (Melatonin 3 Mg Tab) 3 mg PO HS PRN PRN Reason: Sleep Stop: 08/08/23 20:55 Last Admin: 07/09/23 21:05 Dose: 3 mg Metoprolol Succinate (Metoprolol Succ 25mg Ext Rel Tab) 12.5 mg PO QPM [facility] Stop: 08/08/23 20:59 Miscellaneous (Remove Nicoderm Patch) 1 each N/A DAILY@0859 [facility] Stop: 08/08/23 08:58 Last Admin: 07/09/23 09:56 Dose: 1 each Nicotine (Nicotine 7 Mg/24 Hr Tdsy) 7 mg TD QAM [facility] Stop: 08/07/23 11:59 Last Admin: 07/10/23 09:13 Dose: 7 mg Pantoprazole Sodium (Pantoprazole 40 Mg Tab) 40 mg PO DAILY@1630 [facility] Stop: 08/07/23 16:29 Last Admin: 07/09/23 16:50 Dose: 40 mg Umeclidinium [place] (Umeclidinium [place] 62.5mcg/Blister 7 Puffs/Inhaler) 1 puffs INH DAILY [facility] Stop: 08/07/23 11:29 Last Admin: 07/10/23 09:13 Dose: 1 puffs
[2023-07-10 10:12] LABS: Basophils # (auto) 0.01 K/uL (0.00-0.20); Basophils % (auto) 0.3 %; Eosinophils # (auto) 0.03 K/uL (0.00-0.50); Hematocrit (blood only) 36.2 % (37.0-47.0); Hemoglobin 12.3 g/dl (12.0-16.0); Lymphocytes # (auto) 1.34 K/uL (1.20-3.40); Lymphocytes % (auto) 43.4 %; Mean Corpuscular Hemoglobin 30.7 pg (25.0-34.0); Mean Corpuscular Volume 90.3 fL (80.0-100.0); Monocytes # (auto) 0.63 K/uL (0.11-0.59); Monocytes % (auto) 20.4 %; Neutrophils # (auto) 1.08 K/uL (1.40-6.50); Neutrophils % (auto) 34.9 %; Platelet Count 166 K/uL (130-400); RDW Coefficient of Variation 13.2 % (11.5-14.5); RDW Standard Deviation 43.7 fL (36.4-46.3); Red Blood Count 4.01 M/uL (4.20-5.40); White Blood Count 3.09 K/ul (4.8-10.8)
[2023-07-10 10:24] LABS: BUN Creatinine Ratio 19.4 (10-20); Calcium 8.3 mg/dl (8.6-10.3); Creatinine Clr Calc Pharmacy 79.9 ml/min; Est GFR (African American) 119.6 ml/min; Est GFR (Non-African American) 103.2 ml/min; Magnesium 1.9 mg/dl (1.7-2.4); Phosphorus 3.1 mg/dl (2.5-4.9); Potassium 3.8 mmol/L (3.5-5.1)
--- NOTE | 2023-07-10 11:00 | Cardiology Progress Note ---
Date of Service July 10, 2023 Assessment & Plan (1) ACS (acute coronary syndrome): (2) Pulmonary edema: (3) HTN (hypertension): Plan 48-year-old female with cardiovascular risk factors of hypertension, family history, chronic tobacco use presents with now approximately 10 hours post initial onset of chest pain with associated signs and symptoms of pulmonary edema, respiratory distress. Troponin elevated greater than 2000, echocardiogram suggestive of multivessel coronary disease with marked hypokinesis inferior posterior wall, hypokinesis septum and anterior wall Plan: Continue IV heparin Patient with marginal hemodynamics with tachycardic and borderline hyp otension Patient to go immediately to cardiac catheterization for coronary angiography for coronary definition and treatment as indicated, critically ill 07/08/2023. Patient clinically improved but still with persistent cough. Concerns of ACS precipitated by acute tracheobronchitis and worsened with acute pulmonary edema from wall motion abnormality. Clinically improving. Tolerating beta-annabelle but still with productive cough pulmonology consulted and appreciate intervention Will change lisinopril to losartan Continue beta-annabelle antiplatelet therapy given transient atrial tachycardia this more and lipid-lowering therapy Increase activity 07/09/2023 2 days status post presentation with acute coronary syndrome clinically improving but with transient pause on telemetry this morning, QT prolongation on EKG Will resume beta-annabelle with metoprolol succinate 12.5 mg this evening once daily Repeat EKG in a.m., maintain telemetry Repeat CBC with differential in a.m. Continue aspirin clopidogrel and losartan. Might ultimately require low-dose diuretic 07/10/2023. Patient continues to improve. Beta-blockers continue be held due to bradycardia and transient junctional rhythm. Will not resume. Anticipate discharge on dual antiplatelet therapy aspirin and clopidogrel, losartan Will need follow-up with cardiology 2 to 3 weeks time. Will arrange outpatient event monitor Signs and symptoms of heart failure resolved. CHF instructions outlined Admission and Anticipated Discharge Date Admission Date: July 07, 2023 Subjective Patient was seen and examined, chart, medications, telemetry reviewed. Feeling well this morning. Mild residual cough but otherwise improved. No edema. Telemetry tends to demonstrate mild slowing of heart with transient junctional rhythm. No pauses Review of Systems Review of Systems: All systems reviewed & are unremarkable except as noted in Subjective Physical Exam Constitutional: no acute distress Eyes: PERRL, conjunctivae normal, anicteric sclerae ENMT: external ear and nose normal, oropharynx normal Neck: trachea midline, no thyromegaly Respiratory: Auscultation: + rales and + bronchovesicular breath sounds (Bibasilar but improved) Cardiovascular: Rate/Rhythm: regular rate, regular rhythm and + tachycardic Heart Sounds: no murmur Vessels: femoral pulses present and radial pulses present Gastrointestinal (Abdomen): normal bowel sounds, soft, nontender, no hepatosplenomegaly Musculoskeletal: no cyanosis or clubbing, extremities motor strength 5/5 Skin: no rashes, warm and dry Neurologic: PERRL, EOMI, accommodation nl, no face palsy, no dysarthria Results & Data Vital Signs (Past 12 Hours) Vital Signs Temp Pulse Resp BP Pulse Ox O2 Del Method 07/10/23 10:42 36.4 C L 59 L 16 104/65 96 Room Air 07/10/23 07:53 36.4 C L 60 18 131/71 97 Room Air 07/10/23 02:52 36.6 C 78 18 118/74 96 Room Air Laboratory Results Laboratory Results - last 24 hr 07/10/23 07/10/23 06:44 09:52 WBC 2.73 L 3.09 L RBC 4.31 4.01 L Hgb 13.2 12.3 Hct 38.9 36.2 L MCV 90.3 90.3 MCH 30.6 30.7 MCHC 33.9 34.0 RDW Std Deviation 43.0 43.7 RDW Coeff of Anju 13.0 13.2 Plt Count 175 166 MPV 10.4 10.0 Immature Gran % (Auto) 0.4 0.0 Neut % (Auto) 33.7 34.9 Lymph % (Auto) 43.6 43.4 [place] % (Auto) 21.2 20.4 Eos % (Auto) 0.7 1.0 Baso % (Auto) 0.4 0.3 Neut # (Auto) 0.92 L* 1.08 L Lymph # (Auto) 1.19 L 1.34 [place] # (Auto) 0.58 0.63 H Eos # (Auto) 0.02 0.03 Baso # (Auto) 0.01 0.01 Immature Gran # (Auto) 0.01 0.00 L Sodium 133 L Potassium 3.8 Chloride 105 Carbon Dioxide 21 Anion Gap 7 BUN 13 Creatinine 0.67 Est Cr Clr Drug Dosing 79.9 Est GFR ( Amer) 119.6 Est GFR (Non-Af Amer) 103.2 BUN/Creatinine Ratio 19.4 Glucose 111 H Calcium 8.3 L Phosphorus 3.1 Magnesium 1.9
--- NOTE | 2023-07-10 11:40 | Discharge Summary ---
Date of Service July 10, 2023 Admission HPI Per Admitting Provider This is a 48 yo F with PMHx of HTN and chronic tobacco use since age 14 ( 0.5 ppd) who presents to the hospital with complaints of chest pain which started last night around midnight. Pt reports having substernal chest pain and pressure which radiated to her back, associated shortness of breath, as well as nausea and vomiting. Patient reports she was lying down to sleep whenever this occurred, but pain persisted on and off throughout the night. She currently rates this pain a 3/10 and states that the pain medicine the ER gave helped her about an hour ago. She has also received 1 full dose aspirin and heparin gtt. Patient states that she did notice feeling worn out throughout the day yesterday, and took a nap yesterday afternoon until 6 PM. She was with her mother assisting her, but did not notice any chest pain or issues with shortness of breath earlier in the day. Her son and [id number] are present at bedside and supports the history. They brought her to the ER this morning around 7 AM as her symptoms persisted and she called them to come get her. 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 Patient states that she does drink alcohol, twisted tea maybe 2-3 times per week. Denies any illicit drug use, marijuana use or withdrawal from any substances. Family Hx: Father hx of [place] at early age, multiple cardiac stents, pacemaker and defibrillator, and is at age 76. Brother has issues with heart as well. Surgical Hx: Pt with hx of ovarian cyst rupture and internal hemorrhage requiring surgical intervention in 2012. Admission Exam Per Admitting Provider General: awake, alert, no apparent distress, thin white female Head: Normocephalic, atraumatic ENT: PERRL, EOMI, no pharyngeal exudate, mucous membranes moist Chest: + Barrel chested, diminished breath sounds at bases, on 3 LPM NC with O2 sats at 100%, no wheeze or rales Cardiac: Chest pain is not reproducible with palpation, tachycardia, no murmur, no JVD, normal peripheral pulses, good capillary refill Abdominal: NABS x 4 quadrants, soft, nondistended, nontender to palpation, no rebound or guarding Extremities: Normal inspection, no peripheral edema or erythema, calfs nontender to palpation Psych: Normal mood and affect Neuro: AAO x 3, strength intact bilaterally and rated 5/5, no motor deficits, speech is clear, no peripheral sensory deficits Principal Diagnosis NSTEMI s/p PCI, DIONTE x2 Discharge Exam General: WD/WN F in NAD Head: Normocephalic, atraumatic ENT: PERRL, EOMI Chest: decreased air entry b/l, on RA Cardiac: rrr Abdominal: soft, nondistended, nontender to palpation Extremities: Normal inspection, no LE edema, moves extremities Psych: Normal mood and affect Neuro: AAO x 3, speech fluent, no facial asymmetry, moves extremities Discharge Data Allergies Allergy/AdvReac Type Severity Reaction Status Date / Time Penicillins Allergy Severe Throat Unverified 07/07/23 10:14 Swelling Consultations 07/07/23 09:39 ED Decision to Admit Stat 07/07/23 09:52 Consult Cardiology Routine 07/07/23 10:06 Consult Cardiology Routine 07/08/23 11:31 Consult Pulmonology Routine Procedures Performed Operation Date: 07/07/23 11:00 Actual Procedures s Cineradiography w/Routine Exam - Antolin Hernandez MD p Cath, Left with Cors and Vent - Antolin Hernandez MD p Drug Eluting Stent SGl Vessel - Antolin Hernandez MD Ordered Studies 07/07/23 08:11 CTA abd pelvis wo/w con [CT angio abd pelvis wo/w con] Stat FINDINGS: Please note that the chest CT will be reported separately. Small bilat eral pleural effusions, interlobular septal thickening and patchy airspace opacities within the lower lungs are noted. These findings are better depicted on the chest CT. The caliber of the abdominal aorta is normal. There is mild aortoiliac atherosclerotic plaque. No abdominal aortic dissection. Major branch vessels are patent. There is no aneurysm within the abdomen or pelvis. No pneumatosis, free air or portal venous gas is present. There is minimal stranding adjacent to the gallbladder. The gallbladder is not distended. The findings do not suggest acute cholecystitis. IVC and hepatic veins are distended with reflux of contrast. Spleen, adrenal glands, kidneys and pancreas are unremarkable. There is no evidence for a bowel obstruction. Trace fluid within the pelvis is present. The appendix is normal. There is no lymphadenopathy. No fluid collections are present. No acute fractures within the visualized skeletal structures. IMPRESSION: 1. Normal caliber abdominal aorta. No abdominal aortic dissection. Mild atherosclerotic plaque. Patent vessels. 2. Trace fluid within the pelvis. 3. No bowel obstruction. No bowel wall thickening. CTA chest dissec wo/w con [CT angio chest dissec wo/w con] Stat FINDINGS: Thyroid: Imaged portions of the thyroid gland are normal in size and attenuation. Thoracic aorta: No intramural hematoma is seen on the unenhanced series. There is moderate atherosclerotic calcification of the thoracic aorta, which is normal in caliber and demonstrates standard 3-vessel arch anatomy. No dissection is seen. The arch vessels are widely patent. Pulmonary vasculature: The pulmonary trunk is normal in caliber. There are no filling defects identified in the main, lobar, or segmental pulmonary arteries to indicate pulmonary embolus. Heart: The heart is top normal in size and without pericardial effusion. There is coronary artery atherosclerosis.. Lungs and pleural spaces: Evaluation of the lung parenchyma is degraded by motion artifact. Intralobular septal thickening suggests fluid overload/congestive failure. There are small pleural effusions with dependent atelectasis. Patchy groundglass opacities are seen throughout both lungs, greatest in the right lower lobe. There are calcified granulomas. Secretions are noted in the trachea. Mediastinum: There are mildly enlarged mediastinal lymph nodes. A precarinal nod e measures 16 mm in short axis. A pretracheal node measures 10 mm in short axis. [place]: Mildly enlarged bilateral hilar nodes measure up to 10 mm in short axis. Axillae: There is no axillary lymphadenopathy. Upper abdomen: Partially visualized upper abdominal viscera is within normal limits. Skeletal structures: Degenerative change and hyperkyphosis is noted in the thoracic spine. No lytic or blastic bony lesions are seen. IMPRESSION: 1. Unremarkable CT angiogram of the thoracic aorta. 2. There is no evidence of pulmonary embolus in the main, lobar, or segmental pulmonary arteries. 3. There is evidence of fluid overload/congestive failure. 4. Small pleural effusions. 5. Scattered bilateral groundglass opacities likely represent pulmonary edema. Correlate clinically for evidence of a superimposed infectious/inflammatory pneumonitis. A follow-up chest CT scan in 3-4 months time is recommended to document complete resolution. 6. Mildly enlarged mediastinal and hilar lymph nodes are nonspecific and can also be reassessed at follow-up. 7. Coronary artery atherosclerosis. 8. Additional findings as above. 07/07/23 10:29 CL Cath Imgs for PACS use only Stat Hospital Course (1) NSTEMI (non-ST elevated myocardial infarction): (2) Tobacco use: (3) Pleural effusion: (4) HTN (hypertension): NSTEMI HTN Tobacco Use Pleural Effusion - EKG reviewed as above showing ST wave depressions in lateral and inferior leads. - Trended cardiac biomarkers, initial set was 2063, trend until peaks and then one more, Q6H - Pt w/ nausea and vomiting on admission, provided antiemetic - BNP 4m s/p lasix IV, inserted perera cath for strict I/Os, large pleural effusions seen on imaging likely a result of the above. - Pain control with dilaudid Iv prn as this helped her - Given full dose asa and started on heparin gtt, continue - Cessation of tobacco encouraged at bedside, no nicotine patch at this time. - Echo - LV is normal in size. Normal LV wall thickness. Inferior wall and posterior wall are severely hypokinetic at the base and mid level. Anterior wall and inferior and anterior septum are hypokinetic. EF 35 to 40%. Diastolic dysfunction, grade 2, consistent with congestive heart failure. LA is mildly dilated. Mild to moderate mitral regurg. There is trace tricuspid regurg. RV systolic pressure is elevated at 40 to 50 mmHg. - Cardiology consulted - discussed with Dr. Waite -> labor economics professor Summary: 1. Severe single vessel coronary artery disease --80% proximal RPDA No significant nonculprit coronary artery disease 2. Borderline intracardiac filling pressure 3. Successful PCI of proximal RPDA with 2 overlapping DIONTE (2.0 x 8, 2.25 x 12 mm Leivasy). 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 IS. (5) Acute systolic heart failure: Total Time Total Time Spent Total Time Spent (In Minutes): 40 Discharge Plan Discharge Items Patient Disposition: Home - Self-Care Reason For Visit: NSTEMI Discharge Diagnosis: NSTEMI s/p PCI, DIONTE x2 Activity: Per Instructions section Non-emergency contact: Primary Care Provider and Oracle Reports Developer Call non-emergency contact if: you have any medication questions and your symptoms worsen Follow-up/Referrals: Lilly Santiago MD [Primary Care Provider] - (Date & Time 07/14/2023 1:00 PM Provider Brea Stephens PA-C Department Family Medicine [facility] ) Diet: Heart Healthy Addtl Attending Provider Instructions: Follow up with your primary care physician and nail galvanizer. Take aspirin and plavix every day as prescribed. In addition, start taking losartan and stop lisinopril. Follow up with cardiology - you will be contacted about the appointment. They will also arrange outpatient heart monitor for you. You were also started on an inhaler - Incruse - use it daily as prescribed. It is crucial that you quit smoking. Pending Studies at Discharge: No Stand-Alone Forms: My [facility], Smoking Cessation Medications and DC Order Prescriptions: New clopidogrel 75 mg Tablet 75 mg PO QAM Qty: 30 0RF Incruse Ellipta 62.5 mcg/actuation Blister With Device 1 inh inhalation DAILY Qty: 30 0RF nicotine 7 mg/24 hr Patch 24 Hour 7 mg transdermal QAM Qty: 7 0RF cetirizine 10 mg Tablet 10 mg PO QAM Qty: 7 0RF aspirin 81 mg Tablet,Delayed Release (Dr/Ec) 81 mg PO QAM Qty: 30 0RF benzonatate 100 mg Capsule 100 mg PO TID Qty: 14 0RF codeine-guaifenesin [Guaifenesin AC] 10-100 mg/5 mL Liquid 5 ml PO BID PRN (Reason: cough) Qty: 118 0RF fluticasone propionate 50 mcg/actuation [place],Suspension 2 spray NA BID Qty: 16 0RF atorvastatin 40 mg Tablet 80 mg PO QAM Qty: 60 0RF losartan 50 mg Tablet 50 mg PO QAM Qty: 30 0RF Continued Antacid 334 mg Tablet,Chewable 334 mg PO DAILY PRN (Reason: Acid Reflux) Discontinued lisinopril 40 mg tablet 40 mg PO QAM Discharge Orders: Discharge Order (Routine); Ordered 07/10/23 Ordered By: Handy Razo Admission Data Admit Date/Time: 07/07/23 10:40 Attending Provider: Handy Razo Admit Provider: Kim Arambula Primary Care Provider: Lilly Santiago Other Providers: Santino Waite; Kim Arambula; Tejas Avery; Alexei Dorsey; Sy Crum; Lynnette Quintero; Rosario Boudreaux; Kari De Leon; Jaspreet George; Gage Rankin; Leighann Bella
[2023-07-10] MEDS ORDERED: guaiFENesin/CODEINE 100MG/10MG 5ML UDC PO PRN (14:22)
--- NOTE | 2023-07-12 08:18 | Electrocardiogram Report ---
Test Reason : Blood Pressure : / mmHG Vent. Rate : 060 BPM Atrial Rate : 060 BPM P-R Int : 130 ms QRS Dur : 096 ms QT Int : 438 ms P-R-T Axes : 061 076 089 degrees QTc Int : 438 ms Normal sinus rhythm Incomplete right bundle branch block Suspect V1/V2 lead reversal Otherwise normal ECG When compared with ECG of 08-JUL-2023 11:59, QT has shortened Confirmed by Keith German ([id number] on 07/12/2023 8:18:14 AM Referred By: REFERRED SELF Confirmed By:Keith German
== END 2023-07-10 12:27 | disposition home or self-care (01) | DRG 321 ==
LOC: ED 07:44 → 1E 10:38 → OR 10:38 → SUATTDRO 10:40 → 1E 10:40 → 2S 07-08 21:00